=== PATIENT | female | born 1995 | race Caucasian/White ===

== ENCOUNTER 2017-06-07 14:48 | Emergency (ER) | payer OTHER ==
[~2017-06-07] VITALS: Ht 157.5 cm; Wt 82.5 kg
[2017-06-07 14:57] VITALS: TEMP 36.7; Ht 157.5 cm; Wt 82.5 kg
[2017-06-07] MEDS ORDERED: SODIUM CHLORIDE 0.9% 1000ML 1,000 ML IV STA (15:08)
[2017-06-07] MEDS ORDERED: KETOROLAC TROMETHAMINE 30 MG/ML VIAL IV STA (15:08)
[2017-06-07] MEDS ORDERED: VNTHFA/IN INH (15:12)
[2017-06-07 16:09] LABS: BASO % 0.5 %; BASO ABS # 0.04 K/uL (0-0.2); EOS ABS # 0.09 K/uL (0-0.5); HEMOGLOBIN 12.8 g/dL (12.0-16.0); IG# 0.02 K/uL (0.00-0.02); LYMPH ABS # 3.14 K/uL (1.2-3.4); MEAN CELL VOLUME 84.6 fL (80-100); MEAN CORPUSCULAR HEMOGLOBIN 28.5 pg (25-34); MEAN CORPUSCULAR HGB CONC 33.7 g/dl (32-36); MEAN PLATELET VOLUME 9.9 fL (7.4-10.4); MONO % 6.2 %; MONO ABS # 0.54 K/uL (0.11-0.59); NEUT % 56.1 %; NEUT ABS # 4.89 K/uL (1.4-6.5); PLATELET COUNT 253 K/uL (130-400); RED CELL DISTRIBUTION WIDTH CV 13.7 % (11.5-14.5); RED CELL DISTRIBUTION WIDTH SD 42.4 fL (36.4-46.3); WHITE BLOOD COUNT 8.72 K/uL (4.8-10.8)
--- NOTE | 2017-06-07 16:23 | DIAGNOSTIC IMAGING REPORT ---
CT HEAD WITHOUT CONTRAST (CT) CLINICAL HISTORY: Severe headache COMPARISON STUDY: No previous studies for comparison. TECHNIQUE: Axial CT of the brain is performed from the vertex to the skull base. IV contrast was not administered for this examination. A dose lowering technique was utilized adhering to the principles of ALARA. CT DOSE: 537.48 mGy.cm FINDINGS: No intra or extra-axial mass lesions are visualized. There is no CT evidence of acute cortical infarction. There is no evidence of midline shift. There is no acute hemorrhage. No calvarial fractures are visualized. There is no evidence of pathologic ventricular dilatation. There is no evidence of acute sinusitis IMPRESSION: Normal noncontrast head CT. Electronically signed by: Cameron Brvao M.D. 06/07/2017 4:22 PM Dictated Date/Time: 06/07/2017 4:21 PM
[2017-06-07 16:31] LABS: ALBUMIN 3.6 gm/dl (3.4-5.0); ALT/SGPT 19 U/L (12-78); AST/SGOT 9 U/L (15-37); BLOOD UREA NITROGEN 17 mg/dl (7-18); CALCIUM 9.1 mg/dl (8.5-10.1); CARBON DIOXIDE 27 mmol/L (21-32); CREATININE 0.99 mg/dl (0.60-1.20); GLUCOSE 88 mg/dl (70-99); LIPASE 174 U/L (73-393); POTASSIUM 3.9 mmol/L (3.5-5.1); SODIUM 137 mmol/L (136-145)
[2017-06-07 16:33] LABS: ALKALINE PHOSPHATASE 116 U/L (45-117); TOTAL PROTEIN 7.9 gm/dl (6.4-8.2)
--- NOTE | 2017-06-07 16:55 | DIAGNOSTIC IMAGING REPORT ---
ABDOMINAL ULTRASOUND, RIGHT UPPER QUADRANT HISTORY: Right upper quadrant abdominal pain.. COMPARISON: None. FINDINGS: Pancreas: The pancreatic tail is obscured by overlying bowel gas. The remaining portions of the pancreas are within normal limits. Liver: Unremarkable. Gallbladder: The gallbladder is contracted which limits evaluation. No definite gallbladder wall thickening. No gallstones. CBD: 5 mm. Right kidney: No hydronephrosis. IMPRESSION: No significant abnormality identified within the right upper quadrant. Gallbladder is contracted. Electronically signed by: Alfonso Lynch M.D. 06/07/2017 4:53 PM Dictated Date/Time: 06/07/2017 4:52 PM
[2017-06-07 17:10] VITALS: BP 103/68; PULSE 84; O2SAT 99
--- NOTE | 2017-06-07 19:40 | EMERGENCY ROOM VISIT NOTE ---
History Report prepared by David: Hannah Gibbons Under the Supervision of: Juan WallisO. First contact with patient: 14:59 Chief Complaint: ABDOMINAL PAIN Stated Complaint: BAD HEADACHE, STOMACH PAIN History of Present Illness The patient is a 22 year old female who presents to the Emergency Room with complaints of persistent right upper quadrant abdominal pain that began 2 days ago. She notes she has been nauseous and that her discomfort worsens with exertion. The patient states that she has been having a waxing and waning right sided headache that began 3 weeks ago. She notes her last normal menstrual period was 2 days ago and her last bowel movement was today. Pt denies change in vision, fevers, chest pain, shortness of breath, vomiting, diarrhea, pain with urination, and melena. Patient denies swelling of calves, recent trips, history of immobilization or recent surgery, prior history of DVT, hemoptysis, history of malignancy, history of smoking, or control/estrogen use. Patient denies a history of migraines or headaches, diabetes, hypertension, hyperlipidemia, CAD, history of sudden at a young age, and smoking. Source of History: patient Onset: 2 days ago Position: abdomen (RUQ) Quality: other (abdominal pain) Timing: other (persistent) Modifying Factors (Worsening): exertion Associated Symptoms: + headache, + nausea, No fevers, No chest pain, No SOB , No melena, No urinary symptoms Review of Systems See HPI for pertinent positives & negatives. A total of 10 systems reviewed and were otherwise negative. Past Medical & Surgical Medical Problems: (1) No Known Active Medical Problems Family History Patient reports no known family medical history. Social History Smoking Status: Never Smoker Smokeless Tobacco Use: No Alcohol Use: none Drug Use: none Marital Status: Housing Status: lives with family Occupation Status: unemployed Current/Historical Medications Scheduled PRN Albuterol Hfa (Ventolin Hfa), 2 PUFFS INH Q6H PRN for SOB/Wheezing Allergies Coded Allergies: No Known Allergies (Unverified , 06/07/17) Physical Exam Vital Signs Date Time Temp Pulse Resp B/P (MAP) Pulse Ox O2 Delivery O2 Flow Rate FiO2 06/07/17 17:10 84 16 103/68 99 Room Air 06/07/17 14:57 36.7 83 20 123/88 100 Room Air Physical Exam GENERAL: Sitting up in bed, alert, well appearing, well nourished, no distress, non-toxic EYE EXAM: normal conjunctiva. OROPHARYNX: no exudate, no erythema, lips, buccal mucosa, and tongue normal and mucous membranes are moist NECK: supple, no nuchal rigidity, no adenopathy, non-tender LUNGS: Clear to auscultation. Normal chest wall mechanics HEART: no murmurs, S1 normal and S2 normal ABDOMEN: Faint tenderness in RUQ. Abdomen soft, non-tender, normo-active bowel sounds, no masses, no rebound or guarding. BACK: Back is symmetrical on inspection and there is no deformity, no midline tenderness, no CVA tenderness. SKIN: no rashes and no bruising UPPER EXTREMITIES: upper extremities are grossly normal. LOWER EXTREMITIES: No pitting edema. NEURO EXAM: Normal sensorium, cranial nerves II-XII intact, normal speech, no weakness of arms, no weakness of legs. No drift. Finger to nose intact. Gross sensation intact. Medical Decision & Procedures ER Provider Diagnostic Interpretation: Radiology results as stated below per my review and the radiologist's interpretation: ABDOMINAL ULTRASOUND, RIGHT UPPER QUADRANT HISTORY: Right upper quadrant abdominal pain.. COMPARISON: None. FINDINGS: Pancreas: The pancreatic tail is obscured by overlying bowel gas. The remaining portions of the pancreas are within normal limits. Liver: Unremarkable. Gallbladder: The gallbladder is contracted which limits evaluation. No definite gallbladder wall thickening. No gallstones. CBD: 5 mm. Right kidney: No hydronephrosis. IMPRESSION: No significant abnormality identified within the right upper quadrant. Gallbladder is contracted. Electronically signed by: Alfonso Lynch M.D. 06/07/2017 4:53 PM Dictated Date/Time: 06/07/2017 4:[address] HEAD WITHOUT CONTRAST (CT) CLINICAL HISTORY: Severe headache COMPARISON STUDY: No previous studies for comparison. TECHNIQUE: Axial CT of the brain is performed from the vertex to the skull base. IV contrast was not administered for this examination. A dose lowering technique was utilized adhering to the principles of ALARA. CT DOSE: 537.48 mGy.cm FINDINGS: No intra or extra-axial mass lesions are visualized. There is no CT evidence of acute cortical infarction. There is no evidence of midline shift. There is no acute hemorrhage. No calvarial fractures are visualized. There is no evidence of pathologic ventricular dilatation. There is no evidence of acute sinusitis IMPRESSION: Normal noncontrast head CT. Electronically signed by: Cameron Bravo M.D. 06/07/2017 4:22 PM Dictated Date/Time: 06/07/2017 4:21 PM Laboratory Results 06/07/17 15:55 Red Blood Count 4.49, Mean Corpuscular Volume 84.6, Mean Corpuscular Hemoglobin 28.5, Mean Corpuscular Hemoglobin Concent 33.7, Mean Platelet Volume 9.9, Neutrophils (%) (Auto) 56.1, Lymphocytes (%) (Auto) 36.0, Monocytes (%) (Auto) 6.2, Eosinophils (%) (Auto) 1.0, Basophils (%) (Auto) 0.5, Neutrophils # (Auto) 4.89, Lymphocytes # (Auto) 3.14, Monocytes # (Auto) 0.54, Eosinophils # (Auto) 0.09, Basophils # (Auto) 0.04 06/07/17 15:55 Test 06/07/17 15:55 06/07/17 16:04 White Blood Count 8.72 K/uL (4.8-10.8) Red Blood Count 4.49 M/uL (4.2-5.4) Hemoglobin 12.8 g/dL (12.0-16.0) Hematocrit 38.0 % (37-47) Mean Corpuscular Volume 84.6 fL (80-100) Mean Corpuscular Hemoglobin 28.5 pg (25-34) Mean Corpuscular Hemoglobin Concent 33.7 g/dl (32-36) Platelet Count 253 K/uL (130-400) Mean Platelet Volume 9.9 fL (7.4-10.4) Neutrophils (%) (Auto) 56.1 % Lymphocytes (%) (Auto) 36.0 % Monocytes (%) (Auto) 6.2 % Eosinophils (%) (Auto) 1.0 % Basophils (%) (Auto) 0.5 % Neutrophils # (Auto) 4.89 K/uL (1.4-6.5) Lymphocytes # (Auto) 3.14 K/uL (1.2-3.4) Monocytes # (Auto) 0.54 K/uL (0.11-0.59) Eosinophils # (Auto) 0.09 K/uL (0-0.5) Basophils # (Auto) 0.04 K/uL (0-0.2) RDW Standard Deviation 42.4 fL (36.4-46.3) RDW Coefficient of Variation 13.7 % (11.5-14.5) Immature Granulocyte % (Auto) 0.2 % Immature Granulocyte # (Auto) 0.02 K/uL (0.00-0.02) Anion Gap 5.0 mmol/L (3-11) Est Creatinine Clear Calc Drug Dose 87.2 ml/min Estimated GFR () 92.4 Estimated GFR (Non- 79.8 BUN/Creatinine Ratio 17.0 (10-20) Calcium Level 9.1 mg/dl (8.5-10.1) Total Bilirubin 0.2 mg/dl (0.2-1) Direct Bilirubin < 0.1 mg/dl (0-0.2) Aspartate Amino Transf (AST/SGOT) 9 U/L (15-37) Alanine Aminotransferase (ALT/SGPT) 19 U/L (12-78) Alkaline Phosphatase 116 U/L (45-117) Total Protein 7.9 gm/dl (6.4-8.2) Albumin 3.6 gm/dl (3.4-5.0) Lipase 174 U/L (73-393) Urine Color YELLOW Urine Appearance CLEAR (CLEAR) Urine pH 5.5 (4.5-7.5) Urine Specific [place] 1.021 (1.000-1.030) Urine Protein NEG (NEG) Urine Glucose (UA) NEG (NEG) Urine Ketones NEG (NEG) Urine Occult Blood NEG (NEG) Urine Nitrite NEG (NEG) Urine Bilirubin NEG (NEG) Urine Urobilinogen NEG (NEG) Urine Leukocyte Esterase NEG (NEG) Urine WBC (Auto) 0 /hpf (0-5) Urine RBC (Auto) 0-4 /hpf (0-4) Urine Hyaline Casts (Auto) 0 /lpf (0-5) Urine Epithelial Cells (Auto) 10-20 /lpf (0-5) Urine Bacteria (Auto) NEG (NEG) Urine Test NEG (NEG) Laboratory results per my review. Medications Administered Medications (Trade) Dose Ordered Sig/Cecile Route Start Time Stop Time Status Last Admin Dose Admin Sodium Chloride 1,000 ml @ 999 mls/hr Q1H1M STAT IV 06/07/17 15:08 06/07/17 16:08 DC 06/07/17 16:03 999 MLS/HR Ketorolac Tromethamine (Toradol Inj) 30 mg NOW STAT IV 06/07/17 15:08 06/07/17 15:10 DC 06/07/17 16:03 30 MG ED Course ED COURSE: Vital signs were reviewed and showed normal vital signs. The patients medical record was reviewed The above diagnostic studies were performed and reviewed. ED treatments and interventions as stated above. 1503: The patient was evaluated in room C10. A complete history and physical examination was performed. 1508:Ordered Toradol Inj 30mg IV and Sodium Chloride 1000ml @ 999 mls/hr IV. 1658: Upon reevaluation, the patient is feeling better.I discussed my findings with the patient and she understands and agrees with the treatment plan. Medical Decision Differential diagnoses includes but is not limited to gastritis, peptic ulcer disease, GERD, gallbladder disease, pancreatitis, small bowel obstruction, acute coronary syndrome, pericarditis, ischemic bowel, irritable bowel disease, irritable bowel syndrome, appendicitis, diverticulitis, malignancy, hernia, urinary tract infection, torsion, /ectopic , perforation, trauma, infectious, headache, tension headache, cluster headache, migraine, subarachnoid hemorrhage, meningitis, mass, central venous thrombus, concussion, trauma and epidural/subdural hemorrhage. Patient is a 22-year-old female that presents to ER for right upper quadrant abdominal pain which has been present for the past 2 weeks. Twisting turning and bending makes it worse. No chest pain or shortness of breath. Patient has also had a headache for the past 3 weeks. No exacerbating or remitting factors. Patient's completely neurologically intact. No history or risk factors for any clotting disorders. CT head was performed and was unremarkable. Ultrasound right upper quadrant was negative. CBC all BMP, LFTs , bilirubin and UA was unremarkable. was negative. Lipase is normal. Patient family were updated bedside. She was given fluids and Toradol. She difficult better. She is discharged follow-up with PCP as an outpatient. No signs of meningitis or encephalitis on exam. Discussed with Pt concerning signs and symptoms to watch out for. Pt was instructed to follow up with their PCP and discussed with the patient their option to return to the ED at anytime for persistent or worsening symptoms. The appropriate anticipatory guidance and out-patient management, including indications for return to the emergency department, were explained at length to the patient and understood. Medication Reconcilliation Current Medication List: was personally reviewed by me Impression Primary Impression: Cephalgia Additional Impression: Abdominal pain Scribe Attestation The scribe's documentation has been prepared under my direction and personally reviewed by me in its entirety. I confirm that the note above accurately reflects all work, treatment, procedures, and medical decision making performed by me. Departure Information Dispostion Home / Self-Care Referrals Cassius Oneal (PCP) Forms HOME CARE DOCUMENTATION FORM, IMPORTANT VISIT INFORMATION Patient Instructions My [facility] Additional Instructions Please follow up with your primary care doctor with in the next 24 hours. Any worsening of your symptoms, please return to the ED immediately. This includes any fevers greater than 100.4, worsening pain, chest pain, shortness breath, persistent nausea, vomiting, unable to eat or drink, or any other concerning signs or symptoms from your standpoint. Please take Tylenol or Motrin as needed for headaches and abdominal pain. Problem Qualifiers Primary Impression: Cephalgia Headache type: unspecified Headache chronicity pattern: unspecified pattern Intractability: not intractable Qualified Codes: R51 - Headache Additional Impression: Abdominal pain Abdominal location: unspecified location Qualified Codes: R10.9 - Unspecified abdominal pain
== END 2017-06-07 17:27 | disposition home or self-care (01) ==
LOC: C.EDB 14:49 → C.EDC 17:27
DX: R51 Headache (principal); R10.11 Right upper quadrant pain

== ENCOUNTER 2017-07-27 23:55 | Emergency (ER) | payer OTHER ==
[~2017-07-27] VITALS: Ht 157.5 cm; Wt 83.1 kg
[~2017-07-27 23:55] MED LIST: VNTHFA/IN INH
[2017-07-27 23:59] VITALS: TEMP 36.8; Ht 157.5 cm; Wt 83.1 kg
[2017-07-28] MEDS ORDERED: KETOROLAC TROMETHAMINE 30 MG/ML VIAL IV STA (00:11)
[2017-07-28 00:30] LABS: BASO % 0.2 %; BASO ABS # 0.02 K/uL (0-0.2); EOS % 1.2 %; EOS ABS # 0.12 K/uL (0-0.5); HEMATOCRIT 38.8 % (37-47); HEMOGLOBIN 12.7 g/dL (12.0-16.0); IG# 0.02 K/uL (0.00-0.02); LYMPH % 40.9 %; LYMPH ABS # 4.11 K/uL (1.2-3.4); MEAN CELL VOLUME 84.5 fL (80-100); MEAN CORPUSCULAR HEMOGLOBIN 27.7 pg (25-34); MEAN CORPUSCULAR HGB CONC 32.7 g/dl (32-36); MONO % 6.5 %; MONO ABS # 0.65 K/uL (0.11-0.59); NEUT ABS # 5.14 K/uL (1.4-6.5); PLATELET COUNT 295 K/uL (130-400); RED CELL DISTRIBUTION WIDTH CV 13.9 % (11.5-14.5); RED CELL DISTRIBUTION WIDTH SD 42.3 fL (36.4-46.3); WHITE BLOOD COUNT 10.06 K/uL (4.8-10.8)
[2017-07-28 00:52] LABS: ALBUMIN 3.7 gm/dl (3.4-5.0); ALT/SGPT 21 U/L (12-78); AST/SGOT 13 U/L (15-37); BLOOD UREA NITROGEN 15 mg/dl (7-18); CALCIUM 9.4 mg/dl (8.5-10.1); CARBON DIOXIDE 29 mmol/L (21-32); CREATININE 1.05 mg/dl (0.60-1.20); GLUCOSE 86 mg/dl (70-99); LIPASE 173 U/L (73-393); POTASSIUM 3.9 mmol/L (3.5-5.1); SODIUM 139 mmol/L (136-145)
[2017-07-28] MEDS ORDERED: EPP3/2 IM (00:52)
[2017-07-28 00:57] LABS: ALKALINE PHOSPHATASE 110 U/L (45-117); TOTAL PROTEIN 8.1 gm/dl (6.4-8.2)
[2017-07-28 02:00] VITALS: BP 100/63; PULSE 88; O2SAT 100
--- NOTE | 2017-07-28 02:17 | EMERGENCY ROOM VISIT NOTE ---
History First contact with patient: 00:03 Chief Complaint: SHORTNESS OF BREATH Stated Complaint: SOB,PAIN IN CHEST WITH DEEP BREATH,[facility] Nursing Triage Summary: c/o SOB for a few days with chest pain with deep breathing. History of Present Illness The patient is a 22 year old female who presents to the Emergency Room with complaints of midsternal chest pain and shortness of breath for the past few days described as discomfort, 5 out of 10 that is worse with breathing and movement and better with rest. It does not radiate. Patient has been under more stress lately. She tried her inhaler with no improvement of symptoms. She does have asthma. Patient denies fever, chills, cough, congestion, abdominal pain, nausea, vomiting, diarrhea, back pain, leg pain or swelling. No recent travel. No tobacco use. No control. No recent surgery. No family history of heart disease or blood clots. No personal history of blood clots or heart disease. Patient states she has been under more stress lately. Review of Systems An 10 system review of systems was completed with positives and pertinent negatives listed in the HPI. Past Medical/Surgical History Medical Problems: (1) No Known Active Medical Problems Family History Patient reports no known family medical history. Social History Smoking Status: Never Smoker Smokeless Tobacco Use: No Alcohol Use: none Drug Use: none Marital Status: Housing Status: lives with family Current/Historical Medications Scheduled PRN Albuterol Hfa (Ventolin Hfa), 2 PUFFS INH Q6H PRN for SOB/Wheezing Epinephrine (Epipen), 0.3 MG IM UD PRN for Allergic Reaction Physical Exam Vital Signs Date Time Temp Pulse Resp B/P (MAP) Pulse Ox O2 Delivery O2 Flow Rate FiO2 07/28/17 02:00 88 16 100/63 100 Room Air 07/28/17 01:00 84 20 119/73 98 Room Air 07/28/17 00:36 Room Air 07/28/17 00:36 84 07/28/17 00:18 Room Air 07/27/17 23:59 36.8 79 18 138/88 100 Room Air Physical Exam VITALS: Vitals are noted on the nurse's note and reviewed by myself. Vital signs stable. GENERAL: Pleasant female, in no acute distress, nondiaphoretic, well-developed well-nourished. SKIN: The skin was without rashes, erythema, edema, or bruising. There is no tenting of the skin. Capillary reflex less than 2 seconds. HEAD: Normocephalic atraumatic. EARS: External auditory canals clear, tympanic membranes pearly francisco without erythema or effusion bilaterally. EYES: Pupils equal round and reactive to light and accommodation. Conjunctivae without injection, sclerae without icterus. Extraocular movements intact. NOSE: Patent, turbinates without inflammation or discharge. MOUTH: Mucous membranes moist. Pharynx without erythema or exudate. Uvula midline. Airway patent. Tongue does not deviate. NECK: Supple without nuchal rigidity. No lymphadenopathy. No thyromegaly. Cervical spine is nontender. No JVD. HEART: Regular rate and rhythm without murmurs gallops or rubs. Chest nontender to palpation. LUNGS: Clear to auscultation bilaterally without wheezes, rales or rhonchi. No retractions or accessory muscle use. ABDOMEN: Positive bowel sounds x 4. Normal tympanic percussion. Soft, nontender, without masses or organomegaly. Griffith sign negative. No guarding or rebound tenderness. No CVA tenderness MUSCULOSKELETAL: No muscle atrophy, erythema, or edema noted. NEURO: Patient was alert and oriented to person place and time. Normal sensation to light and sharp touch. No focal neurological deficits. Medical Decision & Procedures Laboratory Results 07/28/17 00:20 Red Blood Count 4.59, Mean Corpuscular Volume 84.5, Mean Corpuscular Hemoglobin 27.7, Mean Corpuscular Hemoglobin Concent 32.7, Mean Platelet Volume 10.0, Neutrophils (%) (Auto) 51.0, Lymphocytes (%) (Auto) 40.9, Monocytes (%) (Auto) 6.5, Eosinophils (%) (Auto) 1.2, Basophils (%) (Auto) 0.2, Neutrophils # (Auto) 5.14, Lymphocytes # (Auto) 4.11, Monocytes # (Auto) 0.65, Eosinophils # (Auto) 0.12, Basophils # (Auto) 0.02 07/28/17 00:20 Test 07/28/17 00:20 07/28/17 00:29 White Blood Count 10.06 K/uL (4.8-10.8) Red Blood Count 4.59 M/uL (4.2-5.4) Hemoglobin 12.7 g/dL (12.0-16.0) Hematocrit 38.8 % (37-47) Mean Corpuscular Volume 84.5 fL (80-100) Mean Corpuscular Hemoglobin 27.7 pg (25-34) Mean Corpuscular Hemoglobin Concent 32.7 g/dl (32-36) Platelet Count 295 K/uL (130-400) Mean Platelet Volume 10.0 fL (7.4-10.4) Neutrophils (%) (Auto) 51.0 % Lymphocytes (%) (Auto) 40.9 % Monocytes (%) (Auto) 6.5 % Eosinophils (%) (Auto) 1.2 % Basophils (%) (Auto) 0.2 % Neutrophils # (Auto) 5.14 K/uL (1.4-6.5) Lymphocytes # (Auto) 4.11 K/uL (1.2-3.4) Monocytes # (Auto) 0.65 K/uL (0.11-0.59) Eosinophils # (Auto) 0.12 K/uL (0-0.5) Basophils # (Auto) 0.02 K/uL (0-0.2) RDW Standard Deviation 42.3 fL (36.4-46.3) RDW Coefficient of Variation 13.9 % (11.5-14.5) Immature Granulocyte % (Auto) 0.2 % Immature Granulocyte # (Auto) 0.02 K/uL (0.00-0.02) Anion Gap 4.0 mmol/L (3-11) Est Creatinine Clear Calc Drug Dose 82.6 ml/min Estimated GFR () 86.1 Estimated GFR (Non- 74.3 BUN/Creatinine Ratio 14.0 (10-20) Calcium Level 9.4 mg/dl (8.5-10.1) Total Bilirubin 0.4 mg/dl (0.2-1) Direct Bilirubin < 0.1 mg/dl (0-0.2) Aspartate Amino Transf (AST/SGOT) 13 U/L (15-37) Alanine Aminotransferase (ALT/SGPT) 21 U/L (12-78) Alkaline Phosphatase 110 U/L (45-117) Troponin I < 0.015 ng/ml (0-0.045) Total Protein 8.1 gm/dl (6.4-8.2) Albumin 3.7 gm/dl (3.4-5.0) Lipase 173 U/L (73-393) Human Chorionic Gonadotropin, Qual NEG (NEG) Bedside D-Dimer 189 ng/mlFEU (0-450) Bedside Troponin I < 0.030 ng/ml (0-0.045) Medications Administered Medications (Trade) Dose Ordered Sig/Cecile Route Start Time Stop Time Status Last Admin Dose Admin Ketorolac Tromethamine (Toradol Inj) 15 mg NOW STAT IV 07/28/17 00:11 07/28/17 00:12 DC 07/28/17 00:24 15 MG ED Course Prior records/ancillary studies reviewed. Triage Nursing notes reviewed. The patient's history was concerning for chest pain. Differential diagnosis: Etiologies such as cardiac ischemia, aortic dissection, pulmonary embolism, pneumonia, pneumothorax, musculoskeletal, infections, pericarditis, myocarditis , esophageal rupture, gastrointestinal, as well as others were entertained. Physical examination: As above. ER treatment provided: Toradol On reassessment the patient felt better. Diagnostic interpretation by me: The electrocardiogram was normal sinus, normal intervals, no acute ST-T wave changes. No old EKG. Impression normal sinus rhythm interpreted by myself The labs revealed negative troponin. Negative d-dimer. Imaging studies: Chest x-ray with no acute consolidation, pneumothorax or free of my interpretation Heart score is 0 Exam and history seem consistent chest pain unlikely to be cardiac in etiology. Patient refused to wait for a repeat troponin at the 2 hour jenelle. Patient does have a heart score that is 0. Her symptoms were improved after the Toradol. I felt it is reasonable for her to be discharged home with close follow-up with the family care doctor. This appears to be less likely to be cardiac in etiology. I do not believe she has a PE. D-dimer is negative. Well score is low. No acute findings in the above workup. She is well- appearing. She is tolerating fluids. She felt better after being medicated as above. She has been on it more stress lately. She is advised to rest, stay well-hydrated and to follow-up family care in a few days here in the ER sooner for chest pain, debility breathing, worsening signs or symptoms or as needed. By the evaluation outlined above emergent etiologies such as cardiac ischemia, aortic dissection, pulmonary embolism, pneumonia, pneumothorax, infections, pericarditis, myocarditis, gastrointestinal, as well as others were deemed relatively unlikely. The pt informed about the findings as listed above. All questions were answered and pleased with the treatment. Return instructions were outlined and the patient was discharged in stable condition. Referral: The patient was referred back to primary care physician for follow-up in 2 to 3 days for a recheck of the current condition. Case reviewed with my attending The chart was completed utilizing [employer] Speech voice recognition software. Grammatical errors, random word insertions, pronoun errors, and incomplete sentences are an occassional consequence of this system due to software limitations, ambient noise, and hardware issues. Any formal questions or concerns about the content, text, or information contained within the body of this dictation should be directly addressed to the physician care management assistant for clarification. Medical Decision As above Medication Reconcilliation Current Medication List: was personally reviewed by me Blood Pressure Screening Patient's blood pressure: Normal blood pressure Impression Primary Impression: Non-cardiac chest pain Departure Information Dispostion Home / Self-Care Condition GOOD Referrals Cassius Oneal (PCP) Patient Instructions My [facility] Additional Instructions Ibuprofen(Motrin, Advil) may be used for fever or pain. Use 600mg every six hours as needed. Take with food. Avoid using more than 2400mg in a 24 hour period. Do not use 2400mg per day for more than three consecutive days without physician direction. Prolonged inappropriate use can lead to stomach upset or ulcers. (AND/OR) Acetaminophen(Tylenol) may be used for fever or pain. Use 1000mg every six hours as needed. Avoid using more than 3000mg in a 24 hour period. Rest and drink plenty of fluids as tolerated. Continue current medications. Avoid strenuous activities and anything that worsens your pain. Resume normal activities once your symptoms resolve. Return to the ER immediately for worsening or persistent chest pain, abdominal pain, vomiting, fevers, chest pains, difficulty breathing, worsening of your condition, or as needed. Follow up with your primary physician in 2-3 days for a recheck of your current condition.
--- NOTE | 2017-07-28 06:35 | DIAGNOSTIC IMAGING REPORT ---
CHEST ONE VIEW PORTABLE HISTORY: 22 years-old Female CHEST PAIN acute atypical chest pain with shortness of breath COMPARISON: None available TECHNIQUE: Portable AP view of the chest FINDINGS: Cardiomediastinal and hilar silhouettes are within normal limits. There is no pneumothorax, pleural effusion, focal airspace consolidation or overt pulmonary edema. The bones of the chest appear grossly intact. Upper abdomen appears unremarkable. IMPRESSION: No acute process. The above report was generated using voice recognition software. It may contain grammatical, syntax or spelling errors. Electronically signed by: Dennis Stone M.D. 07/28/2017 6:34 AM Dictated Date/Time: 07/28/2017 6:33 AM
== END 2017-07-28 02:24 | disposition home or self-care (01) ==
LOC: C.EDB 23:56 → C.EDA 07-28 02:24
DX: R07.89 Other chest pain (principal); R06.02 Shortness of breath; J45.909 Unspecified asthma, uncomplicated

== ENCOUNTER 2023-08-12 17:56 | Inpatient (IN) ==
--- NOTE | 2023-08-12 18:08 | Emergency Department Note ---
Impression & Plan Cholelithiasis, Transaminitis, Common bile duct dilation, Abdominal pain, Elevated lipase ED Provider Note NAME: JAYJAY ESCOBAR AGE: 28 SEX: F : 1995 ARRIVES VIA: Ambulance INFORMANT: Patient, ED PROVIDER(S): Simeon Escobar MD CHIEF COMPLAINT: Abdominal pain MEDICAL DECISION MAKING: Patient presents due to concern for abdominal pain. IV was established and blood was obtained along with LFTs lipase and right upper quadrant ultrasound. Patient was ordered IV fluids IV Zofran IV Toradol. Patient had persistent pain and was ordered IV fentanyl 100 mcg. Zosyn ordered. The patient did have improvement in her symptoms. Patient has a normal white count H&H and platelet count. Kidney function is unremarkable. Mild improvement in AST and ALT slightly worsening bilirubin at 2.4 today. The patient does have a lipase of 6200. Patient's urinalysis does not show evidence of obvious infection. Bilirubin noted but the patient does have elevated bilirubin and low blood. Urine ketones noted and patient did receive IV fluids. The patient's gallbladder ultrasound shows cholelithiasis with thickening of the gallbladder wall CBD 1 cm. Patient was ordered an MRCP after discussing the case with on-call GI Dr. Chandra. He stated that Dr. Mendoza may be in hospital tomorrow could potentially perform an ERCP if needed although this would be discussed in the morning after MRCP and evaluation by GI. He also stated that he did not think patient necessarily required a CT abdomen pelvis in light of the patient's lipase and that an MRCP would be appropriate at this time. This was ordered. I did speak with the on-call hospitalist Dr. Lopez and the patient was admitted to the medicine service. Discussion w/ other healthcare providers: Dr. Chandra gastroenterology Dr. Lopez inpatient medicine service Prior /Outside records reviewed: None Differential diagnosis: Appendicitis, ovarian cyst, ovarian torsion, ectopic , TOA, PID, diverticulitis, UTI, obstruction, inflammatory bowel disease, renal colic, PUD, pancreatitis, biliary pathology, hernia, volvulus, constipation, as well as other pathologies were considered. Diagnostics, as interpreted by me: ECG: None Cardiac monitoring: An order was placed for continuous cardiac monitoring. The monitor shows a rate of 85 with sinus rhythm. Patient was placed on pulse oximetry Medical decision rules: None Imaging studies: I informally interpreted the patient's right upper quadrant ultrasound does show gallstones with formal report to follow. HPI: Patient presents due to concern for abdominal pain that began around noon today. The patient states that she had worsening pain after eating Jell-O. Patient was seen last evening in the emergency department due to concern for transaminitis and associated gallstones and biliary colic. Patient had been recommended to stay but left and was going to try and obtain an outpatient appointment. The patient's pain was too severe today to continue staying at home. Patient denies any chest pains or shortness of breath but does feel as though the pain is restricting her ability to take a big deep breath. The patient has had nausea but no vomiting. Patient's pain is located the right upper quadrant sharp and does radiate to the right shoulder. PAST MEDICAL HISTORY: See Below PAST SURGICAL HISTORY: See Below SOCIAL HISTORY: See Below HOME MEDICATIONS: See Below ALLERGIES: See Below VITALS: See Below PHYSICAL EXAMINATION: GENERAL: NAD, non-toxic. EYE EXAM: Normal conjunctiva. PERRL, no anisocoria and EOM's grossly intact w/o pain. OROPHARYNX: Moist mucus membranes, grossly normal dentition. NECK: Trachea midline, no stridor. Supple, no nuchal rigidity, no adenopathy, non-tender. No signs of meningismus. FROM of the neck with good chin to chest and neck extension. LUNGS: Clear to auscultation. Normal chest wall mechanics. HEART: NSR, no MRG. ABDOMEN: Abdomen soft, epigastric and right upper quadrant pain, no masses, no rebound or guarding. BACK: No CVA TTP. SKIN: No rashes and no bruising. UPPER EXTREMITIES: Upper extremities are grossly normal. LOWER EXTREMITIES: Grossly normal, no edema. NEURO EXAM: A&O x3, cranial nerves II-XII grossly intact, normal speech, moves all 4 extremities. Past Med/Surg History Medical History Sinus congestion Surgical History History of Family History Other Asthma Social History Smoking Status: Never smoker Tobacco Type: Cigarettes Hx Alcohol Use: Yes Hx Substance Use: No Preferred Language: Kyrgyz Feels Safe at Home: Yes Allergies Allergies Allergy/AdvReac Type Severity Reaction Status Date / Time No Known Allergies Allergy Verified 08/12/23 20:15 Home Meds Home Medications Medication Instructions Recorded Confirmed citalopram 10 mg tablet 10 mg PO DAILY 08/11/23 08/12/23 famotidine 20 mg tablet 20 mg PO BID 08/11/23 08/12/23 omeprazole 20 mg capsule,delayed 20 mg PO DAILY 08/11/23 08/12/23 release ondansetron HCl 4 mg tablet 4 mg PO BID PRN NAUSEA/VOMITING 08/11/23 08/12/23 Previous Rx's Medication Instructions Recorded ciprofloxacin HCl 500 mg tablet 500 mg PO Q12H 10 days #20 tabs 08/12/23 metronidazole 500 mg tablet 500 mg PO Q8H 10 days #30 tabs 08/12/23 Results & Data (ED) Vital Signs Vital Signs - 24 hr 08/12/23 17:56 08/12/23 18:06 08/12/23 19:22 Temperature 36.6 C Temperature Source Oral Pulse Rate 59 L Pulse Rate [Finger] 53 L Respiratory Rate 24 16 Respiratory Effort / Characteristics Non-Labored Spontaneous Non-Labored Spontaneous Respiratory Depth Normal Normal Respiratory Pattern Regular Regular Blood Pressure 130/82 Blood Pressure [Right Arm] 121/74 Blood Pressure Mean 98 Blood Pressure Mean [Right Arm] 89 Blood Pressure Position [Right Arm] Semi-fowlers Pulse Oximetry 96 98 Oxygen Delivery Method Room Air Room Air Room Air Sepsis Recent Fever Within 48 Hours No Sepsis New/Unexplained Change in Mental Status No Sepsis Action Taken by Nursing No Action Required 08/12/23 20:14 08/12/23 20:46 Temperature 36.5 C Temperature Source Oral Pulse Rate Pulse Rate [Finger] 55 L 56 L Respiratory Rate 18 18 Respiratory Effort / Characteristics Non-Labored Spontaneous Respiratory Depth Normal Respiratory Pattern Regular Blood Pressure Blood Pressure [Right Arm] 113/68 Blood Pressure Mean Blood Pressure Mean [Right Arm] 83 Blood Pressure Position [Right Arm] Pulse Oximetry 100 100 Oxygen Delivery Method Room Air Sepsis Recent Fever Within 48 Hours Sepsis New/Unexplained Change in Mental Status Sepsis Action Taken by Prison Medications Current Medication List: was personally reviewed by me Laboratory Data Attestation: I reviewed the patient's lab results. 08/12/23 18:00 08/12/23 18:00 Lab Results 08/12/23 08/12/23 Range/Units 18:00 18:41 WBC 5.94 (4.8-10.8) K/ul RBC 4.40 (4.20-5.40) M/uL Hgb 12.3 (12.0-16.0) g/dl Hct 38.1 (37.0-47.0) % MCV 86.6 (80.0-100.0) fL MCH 28.0 (25.0-34.0) pg MCHC 32.3 (32.0-36.0) g/dL RDW Std Deviation 42.0 (36.4-46.3) fL RDW Coeff of Adrien 13.3 (11.5-14.5) % Plt Count 242 (130-400) K/uL MPV 10.5 (9.4-12.4) fL Immature Gran % (Auto) 0.2 % Neut % (Auto) 68.8 % Lymph % (Auto) 24.2 % [place] % (Auto) 6.4 % Eos % (Auto) 0.2 % Baso % (Auto) 0.2 % Neut # (Auto) 4.09 (1.40-6.50) K/uL Lymph # (Auto) 1.44 (1.20-3.40) K/uL [place] # (Auto) 0.38 (0.11-0.59) K/uL Eos # (Auto) 0.01 (0.00-0.50) K/uL Baso # (Auto) 0.01 (0.00-0.20) K/uL Immature Gran # (Auto) 0.01 (0.01-0.20) K/uL PT 10.4 (9.0-12.0) Seconds INR 0.9 (0.9-1.1) Sodium 140 (136-145) mmol/L Potassium 3.6 (3.5-5.1) mmol/L Chloride 106 (98-107) mmol/L Carbon Dioxide 28 (21-32) mmol/L Anion Gap 6 (3-11) BUN 10 (6-23) mg/dl Creatinine 0.97 (0.6-1.2) mg/dl Est Cr Clr Drug Dosing 87.9 ml/min Est GFR ( Amer) 90.8 ml/min Est GFR (Non-Af Amer) 78.4 ml/min BUN/Creatinine Ratio 10.3 (10-20) Glucose 95 (70-99(Fasting)) mg/dl Calcium 9.1 (8.6-10.3) mg/dl Total Bilirubin 2.4 H (0.2-1.0) mg/dl AST 146 H (13-39) U/L ALT 319 H (7-52) U/L Alkaline Phosphatase 212 H (34-104) U/L Total Protein 7.5 (6.0-8.3) gm/dl Albumin 4.2 (3.4-5.0) gm/dl Globulin 3.3 (2.5-4.0) gm/dl Albumin/Globulin Ratio 1.3 (0.9-2) Lipase 6252 H (11-82) U/L Urine Color Dark Yellow Urine Appearance Clear (Clear) Urine pH 5.5 (4.5-7.5) Ur Specific [place] 1.014 (1.000-1.030) Urine Protein Negative (Negative) Urine Glucose (UA) Negative (Negative) Urine Ketones Trace H (Negative) Urine Blood Negative (Negative) Urine Nitrite Negative (Negative) Urine Bilirubin 2+ H (Negative) Urine Urobilinogen Negative (Negative) Ur Leukocyte Esterase Negative (Negative) Urine Test Negative (Negative) Administered Medications Discontinued Medications Fentanyl Citrate (Fentanyl Citrate Pf 100 Mcg/2 Ml Vial) 100 mcg IV NOW STA Stop: 08/12/23 18:38 Last Admin: 08/12/23 18:43 Dose: 100 mcg Documented By: JAMES Hydromorphone HCl (Hydromorphone Inj 0.5 Mg/0.5 Ml Syr) 0.5 mg IV NOW STA Stop: 08/12/23 22:03 Last Admin: 08/12/23 22:34 Dose: 0.5 mg Documented By: FRANSISCO Sodium Chloride (Nss) 1,000 mls @ 999 mls/hr IV .Q1H1M STA Stop: 08/12/23 19:06 Last Infusion: 08/12/23 19:26 Dose: Infused Documented By: Admin: 08/12/23 18:25 Dose: 999 mls/hr Documented By: ACC Piperacillin Sod/Tazobactam Sod (Zosyn) 4.5 gm in 100 mls @ 200 mls/hr IV NOW ONE Stop: 08/12/23 19:53 Last Infusion: 08/12/23 20:41 Dose: Infused Documented By: Admin: 08/12/23 20:11 Dose: 200 mls/hr Documented By: FRANSISCO Prochlorperazine 5 mg/ Syringe 5 mls @ 5 mls/min IV ONE ONE Stop: 08/12/23 22:07 Last Admin: 08/12/23 22:34 Dose: 5 mls/min Documented By: RFANSISCO Ketorolac Tromethamine (Ketorolac Tromethamine 15 Mg/Ml Vial) 10 mg IV NOW STA Stop: 08/12/23 18:07 Last Admin: 08/12/23 18:24 Dose: 10 mg Documented By: ACC Ondansetron HCl (Ondansetron Inj 2 Mg/Ml 2 Ml Vial) 4 mg IV NOW STA Stop: 08/12/23 18:07 Last Admin: 08/12/23 18:23 Dose: 4 mg Documented By: ACC Imaging Data Radiologist's Impression: Gallbladder Ultrasound 08/12/23 18:06 Exam(s): US GALLBLADDER EXAM: US Abdomen Limited, Gallbladder CLINICAL HISTORY: Right upper quadrant pain. TECHNIQUE: Real-time ultrasound of the right upper quadrant with image documentation. COMPARISON: Gallbladder ultrasound 06/07/2017 FINDINGS: Liver: The liver measures 18.3 cm. There is increased echogenicity of the liver. No mass. Gallbladder: Cholelithiasis. Thickening of the gallbladder wall could relate to chronic liver disease or acute cystitis. Common bile duct: Dilated common bile duct measuring 1 cm. No stones. Pancreas: The pancreatic head and body are within normal limits. The tail is not visualized due to overlying bowel gas. Right kidney: The right kidney is unremarkable measuring 9.7 cm. IMPRESSION: 1. Cholelithiasis. Thickening of the gallbladder wall could relate to chronic liver disease or acute cystitis. 2. Dilated common bile duct measuring 1 cm. Consider further evaluation with MRCP. 3. Hepatomegaly with fatty infiltration of the liver. Electronically signed by: Gisel Xiong MD 08/12/23 19:54 PM Discharge Plan Visit Data Chief Complaint: Abdominal Pain Stated Complaint: ABDOMINAL PAIN ED Provider: Simeon Escobar Discharge Problem: Cholelithiasis, Transaminitis, Common bile duct dilation, Abdominal pain, Elevated lipase Patient Disposition: Admitted As Inpatient Discharge Instructions Interventions: ED Discharge Assessment Last Done: 08/12/23 23:34 Discharge Problem: Cholelithiasis Qualifiers: Cholelithiasis location: gallbladder Abdominal pain Qualifiers: Abdominal location: right upper quadrant Qualified Code(s): R10.11 - Right upper quadrant pain
[2023-08-12] MEDS: ONDANSETRON INJ 2 MG/ML 2 ML VIAL IV STA (18:23)
[2023-08-12] MEDS: KETOROLAC TROMETHAMINE 15 MG/ML VIAL IV STA (18:24)
[2023-08-12] MEDS: SODIUM CHLORIDE 0.9% 1,000 ML IV STA (18:25)
[2023-08-12 18:27] LABS: Basophils # (auto) 0.01 K/uL (0.00-0.20); Basophils % (auto) 0.2 %; Eosinophils # (auto) 0.01 K/uL (0.00-0.50); Eosinophils % (auto) 0.2 %; Hematocrit (blood only) 38.1 % (37.0-47.0); Hemoglobin 12.3 g/dl (12.0-16.0); Immature Granulocytes # (auto) 0.01 K/uL (0.01-0.20); Immature Granulocytes % (auto) 0.2 %; Lymphocytes # (auto) 1.44 K/uL (1.20-3.40); Lymphocytes % (auto) 24.2 %; Mean Corpuscular Hgb Conc 32.3 g/dL (32.0-36.0); Mean Corpuscular Volume 86.6 fL (80.0-100.0); Mean Platelet Volume 10.5 fL (9.4-12.4); Monocytes # (auto) 0.38 K/uL (0.11-0.59); Monocytes % (auto) 6.4 %; Neutrophils # (auto) 4.09 K/uL (1.40-6.50); Neutrophils % (auto) 68.8 %; Platelet Count 242 K/uL (130-400); RDW Coefficient of Variation 13.3 % (11.5-14.5); White Blood Count 5.94 K/ul (4.8-10.8)
[2023-08-12 18:35] LABS: BUN Creatinine Ratio 10.3 (10-20); Calcium 9.1 mg/dl (8.6-10.3); Creatinine Clr Calc Pharmacy 87.9 ml/min; Est GFR (African American) 90.8 ml/min; Est GFR (Non-African American) 78.4 ml/min; Potassium 3.6 mmol/L (3.5-5.1)
[2023-08-12] MEDS: fentaNYL citrate PF 100 MCG/2 ML VIAL IV STA (18:43)
[2023-08-12 18:46] LABS: INR 0.9 (0.9-1.1); Prothrombin Time 10.4 Seconds (9.0-12.0)
[2023-08-12 18:53] LABS: Albumin Globulin Ratio 1.3 (0.9-2); Albumin Level 4.2 gm/dl (3.4-5.0); Bilirubin,Total 2.4 mg/dl (0.2-1.0); Globulin 3.3 gm/dl (2.5-4.0); Total Protein 7.5 gm/dl (6.0-8.3)
[2023-08-12 18:59] LABS: Appearance Urine Clear (Clear); Blood Urine Negative (Negative); Color Urine Dark Yellow; Glucose Urine UA Negative (Negative); Ketones Urine Trace (Negative); Leukocyte Esterase Urine Negative (Negative); Nitrite Urine Negative (Negative); Protein Urine Negative (Negative); Specific Gravity Urine 1.014 (1.000-1.030); Urobilinogen Urine Negative (Negative); pH Urine 5.5 (4.5-7.5)
[2023-08-12 19:02] LABS: Pregnancy Test, Urine Negative (Negative)
[2023-08-12 19:03] LABS: Bilirubin Urine 2+ (Negative)
--- NOTE | 2023-08-12 19:55 | Ultrasound Report ---
Exam(s): US GALLBLADDER EXAM: US Abdomen Limited, Gallbladder CLINICAL HISTORY: Right upper quadrant pain. TECHNIQUE: Real-time ultrasound of the right upper quadrant with image documentation. COMPARISON: Gallbladder ultrasound 06/07/2017 FINDINGS: Liver: The liver measures 18.3 cm. There is increased echogenicity of the liver. No mass. Gallbladder: Cholelithiasis. Thickening of the gallbladder wall could relate to chronic liver disease or acute cystitis. Common bile duct: Dilated common bile duct measuring 1 cm. No stones. Pancreas: The pancreatic head and body are within normal limits. The tail is not visualized due to overlying bowel gas. Right kidney: The right kidney is unremarkable measuring 9.7 cm. IMPRESSION: 1. Cholelithiasis. Thickening of the gallbladder wall could relate to chronic liver disease or acute cystitis. 2. Dilated common bile duct measuring 1 cm. Consider further evaluation with MRCP. 3. Hepatomegaly with fatty infiltration of the liver. Electronically signed by: Gisel Xiong MD 08/12/23 19:54 PM
[2023-08-12] MEDS: PIPERACILLIN/TAZOBACTAM 4.5 GM/100 ML BAG IV ONE (20:11)
--- NOTE | 2023-08-12 21:27 | History & Physical Report ---
Date of Service August 12, 2023 Assessment & Plan (1) Acute cholecystitis: (2) Acute gallstone pancreatitis: (3) Common bile duct dilation: Plan Acute cholecystitis/acute gallstone pancreatitis- MRCP this evening is now showing progression of the above 2 diagnoses, which are new compared to MRCP 24 hours ago Lipase last evening was 17, now has increased to 6252 NPO Status post 1 L normal saline bolus in the ED NSS + KCl 20 mEq at 100 mL/h Zofran 4 mg IV every 6 hours as needed Zosyn 4.5 g IV every 8 hours Pantoprazole 40 mg IV daily She reports that the morphine that she got last evening made her feel nauseous Dilaudid 0.25 mg IV every 3 hours as needed for moderate pain Dilaudid 0.5 mg IV every 3 hours as needed for severe pain Gastroenterology Dr. Chandra reports that Dr. Mendoza will be in the hospital tomorrow, and will do an ERCP if needed Follow serial CBC with differential and chemistry profile Consult general surgery after GI workup History of Present Illness Chief Complaint: The patient presents to the emergency department with a recurrence of intractable abdominal pain and nausea Primary Care Provider: Cassius Oneal MD The patient is a 28-year-old female with a past medical history including emergency department visit about 24 hours ago, for transaminitis, cholelithiasis, common bile duct dilatation and abdominal pain. Her symptoms had improved after receiving pain medications and was discharged on Cipro and Flagyl, with plans to follow-up with surgery in the outpatient setting at [facility]. Due to more acute worsening of symptoms later on in the day today, she presents to the ED at [facility] for reassessment. Allergies Allergy/AdvReac Type Severity Reaction Status Date / Time No Known Allergies Allergy Verified 08/12/23 20:15 Home Medications Medication Instructions Recorded Confirmed Type citalopram 10 mg tablet 10 mg PO DAILY 08/11/23 08/12/23 History famotidine 20 mg tablet 20 mg PO BID 08/11/23 08/12/23 History omeprazole 20 mg capsule,delayed 20 mg PO DAILY 08/11/23 08/12/23 History release ondansetron HCl 4 mg tablet 4 mg PO BID PRN NAUSEA/VOMITING 08/11/23 08/12/23 History ciprofloxacin HCl 500 mg tablet 500 mg PO Q12H 10 days #20 tabs 08/12/23 08/12/23 Rx metronidazole 500 mg tablet 500 mg PO Q8H 10 days #30 tabs 08/12/23 08/12/23 Rx Past Med/Surg History Medical History Sinus congestion Surgical History History of Family History Other Asthma Social History Smoking Status: Never smoker Tobacco Type: Cigarettes Hx Alcohol Use: Yes Hx Substance Use: No Preferred Language: Swedish Communication Ability: Effective [employer] Service Team Member Required: No Beliefs That Will Affect Care: None Current Living Situation: Spouse and Family Other Information That Helps Us Care for You: No Feels Safe at Home: Yes Safety Concerns: Feels Safe At This Time Assistive Devices: None Review of Systems Review of Systems: The patient denies chest pain, palpitations, shortness of breath, dyspnea on exertion, cough, lower extremity swelling, sore throat, fevers, chills, sweats, vomiting, blood in urine or stool, dysuria, urinary frequency or urgency, lightheadedness, dizziness, headache, memory loss, loss of consciousness, rash, abnormal bruising or bleeding, imbalance, focal or generalized weakness, numbness or tingling in arms or legs, generalized arthralgias or myalgias, neck pain, or night sweats. The review of systems is otherwise negative other than for that already noted above, and at least 10 systems have been reviewed. Physical Exam Physical Exam: The patient is awake, alert and oriented 3, well developed and well nourished, normocephalic and atraumatic, lying in bed and in no acute distress. HEENT--PERRL, EOMI, mucous membranes and oropharynx dry. Neck--supple. No JVD. No bruits. Thyroid normal, trachea midline, no adenopathy. Heart--normal S1 and S2. No murmurs, rubs or gallops. Lungs--clear bilaterally, no respiratory distress, no accessory muscle use. Abdomen--normal bowel sounds and soft. mild tenderness epigastric and right upper quadrant pain Extremities-- No edema. Dermatologic--normal skin turgor, normal color, no abnormal lymph nodes, no rash. Neurologic--cranial nerves II through XII grossly intact. Rheumatologic--normal range of motion. Psychiatric--normal affect. Results & Data Results & Data Vital Signs (Past 12 Hours) Vital Signs Temp Pulse Pulse Resp BP BP Pulse Ox 08/12/23 20:46 56 L 18 113/68 100 08/12/23 20:14 36.5 C 55 L 18 100 08/12/23 19:22 53 L 16 121/74 98 08/12/23 18:06 08/12/23 17:56 36.6 C 59 L 24 130/82 96 O2 Del Method 08/12/23 20:46 Room Air 08/12/23 20:14 08/12/23 19:22 Room Air 08/12/23 18:06 Room Air 08/12/23 17:56 Room Air Laboratory Results Laboratory Results WBC 5.94 K/ul (4.8-10.8) 08/12/23 18:00 RBC 4.40 M/uL (4.20-5.40) 08/12/23 18:00 Hgb 12.3 g/dl (12.0-16.0) 08/12/23 18:00 Hct 38.1 % (37.0-47.0) 08/12/23 18:00 MCV 86.6 fL (80.0-100.0) 08/12/23 18:00 MCH 28.0 pg (25.0-34.0) 08/12/23 18:00 MCHC 32.3 g/dL (32.0-36.0) 08/12/23 18:00 RDW Std Deviation 42.0 fL (36.4-46.3) 08/12/23 18:00 RDW Coeff of Adrien 13.3 % (11.5-14.5) 08/12/23 18:00 Plt Count 242 K/uL (130-400) 08/12/23 18:00 MPV 10.5 fL (9.4-12.4) 08/12/23 18:00 Immature Gran % (Auto) 0.2 % 08/12/23 18:00 Neut % (Auto) 68.8 % 08/12/23 18:00 Lymph % (Auto) 24.2 % 08/12/23 18:00 [place] % (Auto) 6.4 % 08/12/23 18:00 Eos % (Auto) 0.2 % 08/12/23 18:00 Baso % (Auto) 0.2 % 08/12/23 18:00 Neut # (Auto) 4.09 K/uL (1.40-6.50) 08/12/23 18:00 Lymph # (Auto) 1.44 K/uL (1.20-3.40) 08/12/23 18:00 [place] # (Auto) 0.38 K/uL (0.11-0.59) 08/12/23 18:00 Eos # (Auto) 0.01 K/uL (0.00-0.50) 08/12/23 18:00 Baso # (Auto) 0.01 K/uL (0.00-0.20) 08/12/23 18:00 Immature Gran # (Auto) 0.01 K/uL (0.01-0.20) 08/12/23 18:00 PT 10.4 Seconds (9.0-12.0) 08/12/23 18:00 INR 0.9 (0.9-1.1) 08/12/23 18:00 Sodium 140 mmol/L (136-145) 08/12/23 18:00 Potassium 3.6 mmol/L (3.5-5.1) 08/12/23 18:00 Chloride 106 mmol/L (98-107) 08/12/23 18:00 Carbon Dioxide 28 mmol/L (21-32) 08/12/23 18:00 Anion Gap 6 (3-11) 08/12/23 18:00 BUN 10 mg/dl (6-23) 08/12/23 18:00 Creatinine 0.97 mg/dl (0.6-1.2) 08/12/23 18:00 Est Cr Clr Drug Dosing 87.9 ml/min 08/12/23 18:00 Est GFR ( Amer) 90.8 ml/min 08/12/23 18:00 Est GFR (Non-Af Amer) 78.4 ml/min 08/12/23 18:00 BUN/Creatinine Ratio 10.3 (10-20) 08/12/23 18:00 Glucose 95 mg/dl (70-99(Fasting)) 08/12/23 18:00 Calcium 9.1 mg/dl (8.6-10.3) 08/12/23 18:00 Total Bilirubin 2.4 mg/dl (0.2-1.0) H 08/12/23 18:00 AST 146 U/L (13-39) H 08/12/23 18:00 ALT 319 U/L (7-52) H 08/12/23 18:00 Alkaline Phosphatase 212 U/L (34-104) H 08/12/23 18:00 Total Protein 7.5 gm/dl (6.0-8.3) 08/12/23 18:00 Albumin 4.2 gm/dl (3.4-5.0) 08/12/23 18:00 Globulin 3.3 gm/dl (2.5-4.0) 08/12/23 18:00 Albumin/Globulin Ratio 1.3 (0.9-2) 08/12/23 18:00 Lipase 6252 U/L (11-82) H 08/12/23 18:00 Urine Color Dark Yellow 08/12/23 18:41 Urine Appearance Clear (Clear) 08/12/23 18:41 Urine pH 5.5 (4.5-7.5) 08/12/23 18:41 Ur Specific [place] 1.014 (1.000-1.030) 08/12/23 18:41 Urine Protein Negative (Negative) 08/12/23 18:41 Urine Glucose (UA) Negative (Negative) 08/12/23 18:41 Urine Ketones Trace (Negative) H 08/12/23 18:41 Urine Blood Negative (Negative) 08/12/23 18:41 Urine Nitrite Negative (Negative) 08/12/23 18:41 Urine Bilirubin 2+ (Negative) H 08/12/23 18:41 Urine Urobilinogen Negative (Negative) 08/12/23 18:41 Ur Leukocyte Esterase Negative (Negative) 08/12/23 18:41 Urine Test Negative (Negative) 08/12/23 18:41 Impressions Gallbladder Ultrasound 08/12/23 18:06 Exam(s): US GALLBLADDER EXAM: US Abdomen Limited, Gallbladder CLINICAL HISTORY: Right upper quadrant pain. TECHNIQUE: Real-time ultrasound of the right upper quadrant with image documentation. COMPARISON: Gallbladder ultrasound 06/07/2017 FINDINGS: Liver: The liver measures 18.3 cm. There is increased echogenicity of the liver. No mass. Gallbladder: Cholelithiasis. Thickening of the gallbladder wall could relate to chronic liver disease or acute cystitis. Common bile duct: Dilated common bile duct measuring 1 cm. No stones. Pancreas: The pancreatic head and body are within normal limits. The tail is not visualized due to overlying bowel gas. Right kidney: The right kidney is unremarkable measuring 9.7 cm. IMPRESSION: 1. Cholelithiasis. Thickening of the gallbladder wall could relate to chronic liver disease or acute cystitis. 2. Dilated common bile duct measuring 1 cm. Consider further evaluation with MRCP. 3. Hepatomegaly with fatty infiltration of the liver. Electronically signed by: Gisel Xiong MD 08/12/23 19:54 PM Cholangiopancreatography MRI 08/12/23 20:00 Exam(s): MRI MRCP EXAM: MR Abdomen Without Intravenous Contrast, MRCP Protocol CLINICAL HISTORY: Reason for exam: concern for gallstone panc, dilated CBD. TECHNIQUE: Multiplanar magnetic resonance images of the abdomen without intravenous contrast using MRCP protocol. COMPARISON: Ultrasound from August 12, 2023 and MRCP from August 11, 2023 FINDINGS: Bile ducts: The common bile duct is nondilated measuring 5 mm. No choledocholithiasis is seen. Gallbladder: The gallbladder is fully distended measuring 5 cm short axis diameter. There are multiple 2-3 mm calcified gallstones within the dependent portion of the gallbladder and a trace amount of pericholecystic fluid suggesting acute cholecystitis. Liver: Unremarkable. Pancreas: There is a slight edema surrounding the body and tail of the pancreas suggesting possible mild acute pancreatitis. No pancreatic duct dilation is seen. Spleen: Unremarkable. No splenomegaly. Adrenals: Unremarkable. No mass. Kidneys and ureters: Unremarkable. No hydronephrosis. Stomach and bowel: Unremarkable. No obstruction. Other findings: The appendix is normal. IMPRESSION: 1. The gallbladder is fully distended measuring 5 cm short axis diameter. There are multiple 2-3 mm calcified gallstones within the dependent portion of the gallbladder and a trace amount of pericholecystic fluid suggesting acute cholecystitis. 2. There is a slight edema surrounding the body and tail of the pancreas suggesting possible mild acute pancreatitis. This is new. No pancreatic duct dilation is seen. No pseudocyst. 3. The common bile duct is nondilated measuring 5 mm. No choledocholithiasis is seen. Electronically signed by: Yeison Lo MD 08/13/23 01:13 AM Code Status & VTE Plan Code Status Full code VTE Prophylaxis Plan VTE Prophylaxis will be ordered: Yes PG Care Time/CCT Total # of Minutes Spent Total Time Spent with Patient: Total time spent is greater than 50% in coordination of care (as documented) at patient's floor/unit and/or counseling patient: Coding Level of Care Code 33399 INT INP/OBS CARE 2/55MIN Diagnoses Acute cholecystitis K81.0 Acute gallstone pancreatitis K85.10 Common bile duct dilation K83.8
[2023-08-12] MEDS: HYDROmorphone INJ 0.5 MG/0.5 ML SYR IV STA (22:34)
[2023-08-12] MEDS: PROCHLORPERAZINE 5 MG in SYRINGE 4 ML IV ONE (22:34)
[2023-08-12] MEDS ORDERED: ONDANSETRON INJ 2 MG/ML 2 ML VIAL IV PRN (23:45)
[2023-08-12] MEDS ORDERED: HYDROmorphone INJ 0.5 MG/0.5 ML SYR IV PRN ×2 (23:45)
[2023-08-13] MEDS: NSS + 20MEQ KCL 20 MEQ/1,000 ML BAG IV SCH (00:49)
--- NOTE | 2023-08-13 01:14 | Magnetic Resonance Report ---
Exam(s): MRI MRCP EXAM: MR Abdomen Without Intravenous Contrast, MRCP Protocol CLINICAL HISTORY: Reason for exam: concern for gallstone panc, dilated CBD. TECHNIQUE: Multiplanar magnetic resonance images of the abdomen without intravenous contrast using MRCP protocol. COMPARISON: Ultrasound from August 12, 2023 and MRCP from August 11, 2023 FINDINGS: Bile ducts: The common bile duct is nondilated measuring 5 mm. No choledocholithiasis is seen. Gallbladder: The gallbladder is fully distended measuring 5 cm short axis diameter. There are multiple 2-3 mm calcified gallstones within the dependent portion of the gallbladder and a trace amount of pericholecystic fluid suggesting acute cholecystitis. Liver: Unremarkable. Pancreas: There is a slight edema surrounding the body and tail of the pancreas suggesting possible mild acute pancreatitis. No pancreatic duct dilation is seen. Spleen: Unremarkable. No splenomegaly. Adrenals: Unremarkable. No mass. Kidneys and ureters: Unremarkable. No hydronephrosis. Stomach and bowel: Unremarkable. No obstruction. Other findings: The appendix is normal. IMPRESSION: 1. The gallbladder is fully distended measuring 5 cm short axis diameter. There are multiple 2-3 mm calcified gallstones within the dependent portion of the gallbladder and a trace amount of pericholecystic fluid suggesting acute cholecystitis. 2. There is a slight edema surrounding the body and tail of the pancreas suggesting possible mild acute pancreatitis. This is new. No pancreatic duct dilation is seen. No pseudocyst. 3. The common bile duct is nondilated measuring 5 mm. No choledocholithiasis is seen. Electronically signed by: Yeison Lo MD 08/13/23 01:13 AM
[2023-08-13] MEDS: PIPERACILLIN/TAZOBACTAM 4.5 GM in DEXTROSE 5% MINI-B 100 ML IV SCH (01:42)
[2023-08-13 06:27] LABS: Basophils # (auto) 0.01 K/uL (0.00-0.20); Basophils % (auto) 0.2 %; Eosinophils # (auto) 0.03 K/uL (0.00-0.50); Eosinophils % (auto) 0.7 %; Hematocrit (blood only) 32.8 % (37.0-47.0); Hemoglobin 10.6 g/dl (12.0-16.0); Lymphocytes # (auto) 1.58 K/uL (1.20-3.40); Lymphocytes % (auto) 36.6 %; Mean Corpuscular Hemoglobin 28.3 pg (25.0-34.0); Mean Corpuscular Hgb Conc 32.3 g/dL (32.0-36.0); Mean Corpuscular Volume 87.7 fL (80.0-100.0); Mean Platelet Volume 10.7 fL (9.4-12.4); Monocytes # (auto) 0.33 K/uL (0.11-0.59); Monocytes % (auto) 7.6 %; Neutrophils # (auto) 2.37 K/uL (1.40-6.50); Neutrophils % (auto) 54.9 %; Platelet Count 220 K/uL (130-400); RDW Coefficient of Variation 13.5 % (11.5-14.5); RDW Standard Deviation 42.9 fL (36.4-46.3); Red Blood Count 3.74 M/uL (4.20-5.40); White Blood Count 4.32 K/ul (4.8-10.8)
[2023-08-13 06:40] LABS: Albumin Globulin Ratio 1.3 (0.9-2); Albumin Level 3.5 gm/dl (3.4-5.0); BUN Creatinine Ratio 9.4 (10-20); Bilirubin,Total 1.2 mg/dl (0.2-1.0); Calcium 8.4 mg/dl (8.6-10.3); Creatinine Clr Calc Pharmacy 87.4 ml/min; Est GFR (Non-African American) 79.4 ml/min; Globulin 2.7 gm/dl (2.5-4.0); Potassium 3.7 mmol/L (3.5-5.1); Total Protein 6.2 gm/dl (6.0-8.3)
[2023-08-13] MEDS ORDERED: MIDAZOLAM HCL 1 MG/ML 2ML VIAL ONE (08:06)
[2023-08-13] MEDS ORDERED: PROPOFOL IV EMULSION 10 MG/ML 20 ML VIAL IV ONE ×2 (08:06→10:07)
[2023-08-13] MEDS ORDERED: LIDOCAINE 2% 2 ML VIAL/AMP(20MG/ML) INFIL ONE (08:06)
[2023-08-13] MEDS ORDERED: ONDANSETRON INJ 2 MG/ML 2 ML VIAL ONE (08:06)
[2023-08-13] MEDS ORDERED: DEXAMETHASONE SOD INJ 4 MG/ML VIAL ONE (08:06)
[2023-08-13] MEDS ORDERED: SUCCINYLCHOLINE CHLORIDE 20 MG/ML 10 ML VIAL IV ONE (08:06)
[2023-08-13] MEDS ORDERED: fentaNYL citrate PF 100 MCG/2 ML VIAL ONE (08:06)
--- NOTE | 2023-08-13 08:06 | Hospitalist Progress Note ---
Date of Service August 13, 2023 Assessment & Plan (1) Choledocholithiasis with acute cholecystitis with obstruction: Plan: 28 F with no significant past medical history who presented to the emergency room with nausea, vomiting, and abdominal pain x 4 days. Admitted to the hospital for acute management of choledocholithiasis with acute cholecystitis. Now s/p ERCP. Choledocholithiasis with Acute Cholecystitis with Obstruction/Acute Pancreatitis -Acute. Patient does report history of -associated cholecystitis dating back to first at age 24. Youngest child is now 4 months old. -Lipase 6252, AST/ALT 319/212, alk phos 212. Now downtrending (lipase-1841, AST/ALT-85/216, alk phos-152). No leukocytosis. -Gallbladder U/S: Thickening of the gb wall c/f acute cystitis, chronic liver disease; dilated CBD measuring 1 cm; hepatomegaly with fatty infiltration. -MRCP: Full distention of gallbladder measuring 5 cm at short axis, multiple 2 to 3 mm calcified gallstones within the dependent portion of the gallbladder and trace amount of pericholecystic fluid suggesting acute cholecystitis; slight edema surrounding body and tail of pancreas suggesting mild acute pancreatitis (no pseudocyst, pancreatic ductal dilation); nondilated CBD measuring 5 mm. -S/p ERCP 08/12, biliary sphincterotomy. -Tolerating clears successfully at present. * Continue gentle p.o. intake with clears; continue maintenance IV fluids * Pain control regimen: IV Dilaudid 0.25 mg, 0.5 mg every 3 hours as needed * IV Zofran 4 mg every 6 hours as needed for nausea * Refer to general surgery for elective cholecystectomy (consult placed) * Repeat ERCP x 6 weeks to remove stent, after cholecystectomy * Continue IV Zosyn * Clear liquid diet * Trend LFTs, transaminases Code: Full code Dispo: Med-Surg FEN/GI: Clears DVT Prophylaxis: Heparin 5000 u q12h, starting 08/13 PT/OT: No Consults: Gastroenterology, General Surgery Case Management: No (2) Acute cholecystitis: (3) Acute gallstone pancreatitis: (4) Common bile duct dilation: Admission and Anticipated Discharge Date Admission Date: August 12, 2023 Supervising Physician Co-Signing Physician Notes I personally examined the patient and verified grimes points of history and exam, discussed case, and agree with decision making and plan documented by Dr. Madison. Evaluated patient at bedside status post ERCP and stent placement. Symptoms of pain, vomiting, and nausea have improved. Patient tolerating p.o. liquids, discussed slow advance. Surgical recommendation to pursue outpatient cholecystectomy. Subjective Patient is resting in bed comfortably s/p ERCP. She denies nausea, abdominal pain, headache. She has already trialed clear liquids, with some success. ROS + fatigue only. Review of Systems Review of Systems: All systems reviewed & are unremarkable except as noted in HPI & below Physical Exam Physical Exam: General: No acute distress HEENT: PERRLA. Normal conjunctiva, anicteric sclera. Oropharynx normal. Respiratory: Normal respiratory effort, CTABL. Cardiovascular: RRR without murmurs, gallops, or rubs. No pedal edema. Neuro: Alert and oriented x3. Results & Data Results & Data Vital Signs (Past 12 Hours) Vital Signs Temp Pulse Pulse Resp BP Pulse Ox O2 Del Method 08/13/23 07:58 36.6 C 74 18 117/72 6 L Room Air 08/12/23 23:49 36.4 C L 54 L 16 125/84 94 Room Air 08/12/23 22:41 66 08/12/23 22:40 60 16 134/84 95 Room Air 08/12/23 20:46 56 L 18 113/68 100 Room Air 08/12/23 20:14 36.5 C 55 L 18 100 Resident Activity Tracking Resident Involvement: Resident Care Provided Care Provided: Adult Hospital Medicine
[2023-08-13] MEDS ORDERED: ROCURONIUM BROMIDE 10 MG/ML 5 ML VIAL IV ONE (08:07)
[2023-08-13] MEDS ORDERED: fentaNYL citrate PF 100 MCG/2 ML VIAL IV PRN (08:39)
[2023-08-13] MEDS ORDERED: ONDANSETRON INJ 2 MG/ML 2 ML VIAL IV PRN (08:39)
[2023-08-13] MEDS ORDERED: HYDROmorphone INJ 1 MG/ML SYRINGE IV PRN (08:39)
[2023-08-13] MEDS ORDERED: ePHEDrine sulfate 50 MG/ML AMP IV PRN (08:39)
[2023-08-13] MEDS ORDERED: ATROPINE SULFATE 0.1 MG/ML 10ML SYR IV PRN (08:39)
--- NOTE | 2023-08-13 08:39 | Anesthesiology Consultation ---
Date of Service August 13, 2023 Assessment & Plan ASA ASA2 Proposed Anesthesia Anesthesia Type: General Risk / Benefits Reviewed With: PT / POA / Parent / Guardian, Accepts Plan and Informed Consent Obtained History Surgery Operation Date: 08/13/23 08:30 Proposed Procedures p Endoscopic Retrograde Cholangiopancreato - Simone Mendoza DO Height/Weight Height: 5 ft 2 in Weight: 86.4 kg Allergies Allergy/AdvReac Type Severity Reaction Status Date / Time No Known Allergies Allergy Verified 08/12/23 20:15 Medications Home Medications Medication Instructions Recorded Confirmed Last Taken citalopram 10 mg tablet 10 mg PO DAILY 08/11/23 08/12/23 08/12/23 famotidine 20 mg tablet 20 mg PO BID 08/11/23 08/12/23 08/12/23 08:00 omeprazole 20 mg capsule,delayed 20 mg PO DAILY 08/11/23 08/12/23 08/12/23 release ondansetron HCl 4 mg tablet 4 mg PO BID PRN NAUSEA/VOMITING 08/11/23 08/12/23 Unknown ciprofloxacin HCl 500 mg tablet 500 mg PO Q12H 10 days #20 tabs 08/12/23 08/12/23 Unknown metronidazole 500 mg tablet 500 mg PO Q8H 10 days #30 tabs 08/12/23 08/12/23 Unknown Active Medications Generic Name Dose Route Start Last Admin Trade Name Freq PRN Reason Stop Dose Admin Piperacillin Sod/Tazobactam 100 mls @ 25 mls/hr 08/13/23 02:00 08/13/23 05:53 Sod 4.5 gm/ Dextrose IV 08/23/23 01:59 Infused Q8H KERVIN Infusion Protocol Potassium Chloride/Sodium Chloride 20 meq in 1,000 mls @ 100 mls/hr 08/13/23 00:30 08/13/23 00:49 Normal Saline W/20 Meq Kcl IV 09/12/23 00:29 100 mls/hr .Q10H KERVIN Administration Protocol NPO Date Last Intake of Fluids: 08/12/23 Time Last Intake of Fluids: 10:00 Date Last Intake of Solids: 08/10/23 Time Last Intake of Solids: 00:00 Past Medical History Medical History Sinus congestion Exercise / Class Metabolic Activity II 4-5 Yardwork/Stairs/Walk up hill Past Family History Family History Other Asthma Past Surgical History Surgical History History of Past Anesthesia History No Hx of Anesthesia Complications and No Family Hx of Anesthesia Complications History of PONV No Hx of PONV and No Hx of Motion Sickness Social History Smoking Status: Never smoker Hx Alcohol Use: Yes alcohol intake frequency: holidays/special occasions only Hx Substance Use: No Review of Systems denies fever/cough/ colds/ chest pain/ SOB/ ROCK denies ROCK Physical Exam Vital Signs Last Vital Signs Temp 36.5 C 08/13/23 08:21 Pulse 70 08/13/23 08:21 Resp 18 08/13/23 08:21 BP 116/79 08/13/23 08:21 Pulse Ox 99 08/13/23 08:21 O2 Del Method Room Air 08/13/23 08:21 ENMT Mouth: no TMJ abnormality and no dentition abnormality Thyromental Distance: > or= 3.5 Finger Breadths Mallampati Class: II Neck neck extension not limited Respiratory normal respiratory effort; no respiratory distress Auscultation: lungs clear to auscultation bilaterally Cardiovascular Rate/Rhythm: regular rate and regular rhythm Neurologic moves all extremities Psychiatric Orientation: alert and oriented x 3 Testing Laboratory Results 08/13/23 05:26 08/13/23 05:26 PT 10.4 Seconds (9.0-12.0) 08/12/23 18:00 INR 0.9 (0.9-1.1) 08/12/23 18:00 Urine Color Dark Yellow 08/12/23 18:41 Urine Appearance Clear (Clear) 08/12/23 18:41 Urine pH 5.5 (4.5-7.5) 08/12/23 18:41 Ur Specific [place] 1.014 (1.000-1.030) 08/12/23 18:41 Urine Protein Negative (Negative) 08/12/23 18:41 Urine Glucose (UA) Negative (Negative) 08/12/23 18:41 Urine Ketones Trace (Negative) H 08/12/23 18:41 Urine Nitrite Negative (Negative) 08/12/23 18:41 Ur Leukocyte Esterase Negative (Negative) 08/12/23 18:41 Urine Test Negative (Negative) 08/12/23 18:41 08/12/23 18:41 Urine Test Negative
--- NOTE | 2023-08-13 08:57 | Gastrointestinal Consultation ---
Date of Consultation August 13, 2023 Assessment & Plan (1) Acute cholecystitis: (2) Acute gallstone pancreatitis: Pt is a 28 yo female w abd pain, n/v symptoms, noted to have elevated LFTs, lipase and abd imaging studies evidence of gallstones, cholecystitis, pancreatitis. Suspect gallstone pancreatitis though wo CBD dilation or obvious choledocholithiasis noted on MRCP - Zosyn IV - NPO - Plan for ERCP in OR by Dr. Mendoza today - IVF support w LR - Surgery to eval for cholecystectomy - Trend LFTs - Symptomatic management with analgesics and antiemetics prn Supervising Physician Co-Signing Physician Notes I saw and evaluated the patient, she is present with intermittent abdominal discomfort that has been ongoing for. Of note she did have recent delivery baby. She recalls that she began to develop some symptoms shortly into her second trimester. The patient was found to have elevation of her liver associated enzymes and imaging that shows numerous stones within her gallbladder. There is a question of dilation of the common bile duct however no obvious gallstones noted on MRCP or ultrasound. Patient's bilirubin is elevated. It is quite possible that the patient did pass common bile duct stone, given the discrepancy we will proceed with upper endoscopy, endoscopic ultrasound and likely ERCP if gallstones found. We discussed risks and benefits of the procedures to include bleeding, infection, perforation, pain, pancreatitis and increased risk of post ERCP complications such as pancreatitis given the patient's young age and gender. History of Present Illness Reason for Consultation: Gallstone pancreatitis Requesting Physician: Dr. Jeanna Nielsen Attending Physician: Dr. Simone Mendoza History of Present Illness Pt is a 28 yo female who was seen for upper abd pain, nausea, vomiting symptoms. She's been unable to eat for over 4 days now. Denies fever, chills, CP, SOB. On eval, noted to have no leukocytosis, but LFTs elevated: Tbili 1.2, AST 85, ALT 216, Alk phos 152, lipase 1841. Gallbladder u/s and MRCP abd showed signs of gallstone w acute cholecystitis, pancreatitis wo ductal dilation. CBD 5mm on MRCP wo obvious choledocholithiasis. Allergies Allergy/AdvReac Type Severity Reaction Status Date / Time No Known Allergies Allergy Verified 08/12/23 20:15 Home Medications Medication Instructions Recorded Confirmed Type citalopram 10 mg tablet 10 mg PO DAILY 08/11/23 08/12/23 History famotidine 20 mg tablet 20 mg PO BID 08/11/23 08/12/23 History omeprazole 20 mg capsule,delayed 20 mg PO DAILY 08/11/23 08/12/23 History release ondansetron HCl 4 mg tablet 4 mg PO BID PRN NAUSEA/VOMITING 08/11/23 08/12/23 History ciprofloxacin HCl 500 mg tablet 500 mg PO Q12H 10 days #20 tabs 08/12/23 08/12/23 Rx metronidazole 500 mg tablet 500 mg PO Q8H 10 days #30 tabs 08/12/23 08/12/23 Rx Patient History Medical History Sinus congestion Surgical History History of Family History Other Asthma Social History Smoking Status: Never smoker Tobacco Type: Cigarettes Hx Alcohol Use: Yes Hx Substance Use: No Preferred Language: [place] Communication Ability: Effective Smt Technician Required: No Beliefs That Will Affect Care: None Current Living Situation: Spouse and Family Other Information That Helps Us Care for You: No Feels Safe at Home: Yes Safety Concerns: Feels Safe At This Time Assistive Devices: None Review of Systems Review of Systems: All systems reviewed & are unremarkable except as noted in HPI & below Physical Exam Constitutional: WD/WN, vitals as above well groomed, cooperative and comfortable Eyes: PERRL, conjunctivae normal, anicteric sclerae ENMT: external ear and nose normal, oropharynx normal Respiratory: normal respiratory effort, lungs clear to auscultation Cardiovascular: RRR, no murmur, no edema Gastrointestinal (Abdomen): Soft, TTP diffuse, BS hypoactive Skin: no rashes, warm and dry no jaundice Psychiatric: A+Ox3, euthymic affect Lymphatic: no lymphedema Results & Data Vital Signs (Past 12 Hours) Vital Signs Temp Pulse Pulse Resp BP Pulse Ox O2 Del Method 08/13/23 08:21 36.5 C 70 18 116/79 99 Room Air 08/13/23 07:58 36.6 C 74 18 117/72 6 L Room Air 08/12/23 23:49 36.4 C L 54 L 16 125/84 94 Room Air 08/12/23 22:41 66 08/12/23 22:40 60 16 134/84 95 Room Air
--- NOTE | 2023-08-13 10:04 | GI REPORT ---
Patient Name: Linda Davison Procedure Date: 08/13/2023 9:41 AM Date of : 1995 Admit Type: Inpatient Age: 28 Gender: Female Attending MD: Simone Mendoza DO, Procedure: Upper GI endoscopy Providers: Simone Mendoza DO Referring MD: Jeanna Nielsen Do Indications: Epigastric abdominal pain Medicines: General Anesthesia Complications: No immediate complications. Estimated blood loss: Minimal. Estimated Blood Loss: Estimated blood loss was minimal. Procedure: Pre-Anesthesia Assessment: - Prior to the procedure, a History and Physical was performed, and patient medications, allergies and sensitivities were reviewed. The patient's tolerance of previous anesthesia was reviewed. - The risks and benefits of the procedure and the sedation options and risks were discussed with the patient. All questions were answered and informed consent was obtained. - Patient identification and proposed procedure were verified prior to the procedure by the physician, the nurse and the gate agent. The procedure was verified in the procedure room. - Pre-procedure physical examination revealed no contraindications to sedation. - ASA Grade Assessment: II - A patient with mild systemic disease. - After reviewing the risks and benefits, the patient was deemed in satisfactory condition to undergo the procedure. - The anesthesia plan was to use general anesthesia. - Immediately prior to administration of medications, the patient was re-assessed for adequacy to receive sedatives. - The heart rate, respiratory rate, oxygen saturations, blood pressure, adequacy of pulmonary ventilation, and response to care were monitored throughout the procedure. - The physical status of the patient was re-assessed after the procedure. After obtaining informed consent, the endoscope was passed under direct vision. Throughout the procedure, the patient's blood pressure, pulse, and oxygen saturations were monitored continuously. The Scope was introduced through the mouth, and advanced to the third part of duodenum. The upper GI endoscopy was accomplished without difficulty. The patient tolerated the procedure well. Findings: The examined esophagus was normal. The Z-line was regular and was found 33 cm from the incisors. Diffuse moderate inflammation characterized by congestion (edema), erythema and granularity was found in the entire examined stomach. Biopsies were taken with a cold forceps for histology. The pathology specimen was placed into Bottle A. Estimated blood loss was minimal. The examined duodenum was normal. Impression: - Normal esophagus. - Z-line regular, 33 cm from the incisors. - Gastritis. Biopsied. - Normal examined duodenum. Recommendation: - Perform an upper endoscopic ultrasound (UEUS) today. - Await pathology results. Simone Mendoza D.O. Simone Mendoza, 08/13/2023 10:03:38 AM This report has been signed electronically. Note Initiated On: 08/13/2023 9:41 AM Number of Addenda: 0 I attest to the content of the Intraoperative Record and orders documented therein, exceptions below {[id number]}
[2023-08-13] MEDS ORDERED: SUGAMMADEX SODIUM 200 MG/2 ML VIAL IV ONE (10:11)
--- NOTE | 2023-08-13 10:37 | Post Operative Brief Note ---
Immediate Post Op Note v1 Date of Surgery August 13, 2023 Pre & Post Diagnosis Operation Date: 08/13/23 08:30 Pre-Op Diagnosis: GALLSTONE PANCREATITIS I identified the patient and participated in the time-out.: Yes Procedure Operation Date: 08/13/23 08:30 Actual Procedures p EGD Biopsy - Simone Mendoza DO p Endoscopic Retrograde Cholangiopancreato - Simone Mendoza DO s Endoscopic Ultrasonography Upper - Simone Mendoza DO Surgeon Simone Mendoza, Tune Up Mechanic none Estimated Blood Loss 0 Findings Consistent with Post-Op Diagnosis
--- NOTE | 2023-08-13 10:39 | Communication Note ---
Date of Service: August 13, 2023 The patient underwent upper endoscopy, endoscopic ultrasound and ERCP for choledocholithiasis. We were able to remove a gallstone from the distal common bile duct and treat papillary stenosis with biliary sphincterotomy. Recommendations Repeat ERCP for stent removal in 6 to 8 weeks Cholecystectomy per general surgery Avoid nonsteroidals for 1 week Please call with any questions or concerns GI to sign off
--- NOTE | 2023-08-13 10:42 | GI REPORT ---
Patient Name: Linda Davison Procedure Date: 08/13/2023 9:39 AM Date of : 1995 Admit Type: Inpatient Age: 28 Gender: Female Attending MD: Simone Mendoza DO, Procedure: Upper EUS Providers: Simone Mendoza DO Referring MD: Thai Yusuf Indications: Elevated liver enzymes, Suspected choledocholithiasis Medicines: General Anesthesia Complications: No immediate complications. Estimated blood loss: Minimal. Estimated Blood Loss: Estimated blood loss was minimal. Procedure: Pre-Anesthesia Assessment: - Prior to the procedure, a History and Physical was performed, and patient medications, allergies and sensitivities were reviewed. The patient's tolerance of previous anesthesia was reviewed. - The risks and benefits of the procedure and the sedation options and risks were discussed with the patient. All questions were answered and informed consent was obtained. - Patient identification and proposed procedure were verified prior to the procedure by the physician, the nurse and the medication nurse. The procedure was verified in the procedure room. - Pre-procedure physical examination revealed no contraindications to sedation. - ASA Grade Assessment: II - A patient with mild systemic disease. - After reviewing the risks and benefits, the patient was deemed in satisfactory condition to undergo the procedure. - The anesthesia plan was to use general anesthesia. - Immediately prior to administration of medications, the patient was re-assessed for adequacy to receive sedatives. - The heart rate, respiratory rate, oxygen saturations, blood pressure, adequacy of pulmonary ventilation, and response to care were monitored throughout the procedure. - The physical status of the patient was re-assessed after the procedure. After obtaining informed consent, the endoscope was passed under direct vision. Throughout the procedure, the patient's blood pressure, pulse, and oxygen saturations were monitored continuously. The Endosonoscope was introduced through the mouth, and advanced to the second part of duodenum. The upper EUS was accomplished without difficulty. The patient tolerated the procedure well. Findings: ENDOSONOGRAPHIC FINDING: : An impacted stone was noted in the ampulla with upstream CBD dilation. There was dilation in the common bile duct which measured up to 7 mm. Multiple stones were visualized endosonographically in the gallbladder. They were hyperechoic and characterized by shadowing. There was no sign of significant endosonographic abnormality in the entire pancreas. No masses, no cysts, no calcifications, the pancreatic duct was thin in caliber. There was no sign of significant endosonographic abnormality in the left adrenal gland. No adrenal gland enlargement was identified. Impression: - There was dilation in the common bile duct which measured up to 7 mm. - Multiple stones were visualized endosonographically in the gallbladder. - There was no sign of significant pathology in the entire pancreas. - Endosonographic images of the left adrenal gland were unremarkable. - No specimens collected. Recommendation: - Perform an ERCP today. Simone Mendoza D.O. Simone Mendoza, 08/13/2023 10:42:23 AM This report has been signed electronically. Note Initiated On: 08/13/2023 9:39 AM Number of Addenda: 0 I attest to the content of the Intraoperative Record and orders documented therein, exceptions below {[id number]}
--- NOTE | 2023-08-13 10:45 | GI REPORT ---
Patient Name: Linda Davison Procedure Date: 08/13/2023 9:42 AM Date of : 1995 Admit Type: Inpatient Age: 28 Gender: Female Attending MD: Simone Mendoza DO, Procedure: ERCP Providers: Simone Mendoza DO Referring MD: Jenana Nielsen Do Indications: Abdominal pain of suspected biliary origin, For therapy of bile duct stone(s) Medicines: General Anesthesia Complications: No immediate complications. Estimated blood loss: Minimal. Estimated Blood Loss: Estimated blood loss was minimal. Procedure: Pre-Anesthesia Assessment: - Prior to the procedure, a History and Physical was performed, and patient medications, allergies and sensitivities were reviewed. The patient's tolerance of previous anesthesia was reviewed. - The risks and benefits of the procedure and the sedation options and risks were discussed with the patient. All questions were answered and informed consent was obtained. - Patient identification and proposed procedure were verified prior to the procedure by the physician, the nurse and the marzipan molder. The procedure was verified in the procedure room. - Pre-procedure physical examination revealed no contraindications to sedation. - ASA Grade Assessment: II - A patient with mild systemic disease. - After reviewing the risks and benefits, the patient was deemed in satisfactory condition to undergo the procedure. - The anesthesia plan was to use general anesthesia. - Immediately prior to administration of medications, the patient was re-assessed for adequacy to receive sedatives. - The heart rate, respiratory rate, oxygen saturations, blood pressure, adequacy of pulmonary ventilation, and response to care were monitored throughout the procedure. - The physical status of the patient was re-assessed after the procedure. After obtaining informed consent, the scope was passed under direct vision. Throughout the procedure, the patient's blood pressure, pulse, and oxygen saturations were monitored continuously. The Duodenoscope was introduced through the mouth, and advanced to the duodenum and used to inject contrast into the bile duct. The ERCP was accomplished without difficulty. The patient tolerated the procedure well. Findings: The room service waiter/waitress film was normal. The esophagus was successfully intubated under direct vision without detailed examination of the pharynx, larynx, and associated structures, and upper GI tract. The upper GI tract was grossly normal. The major papilla was normal. The bile duct was deeply cannulated with the short-nosed traction sphincterotome and guidewire (PD not cannulated or injected today). Contrast was injected. I personally interpreted the bile duct images. Contrast extended to the bifurcation. The biliary orifice was stenotic. This appeared benign. The lower third of the main bile duct contained one stone, which was 5 mm in diameter. Biliary sphincterotomy was made with a monofilament Fusion OMNI sphincterotome using ERBE electrocautery. There was no post-sphincterotomy bleeding. To discover objects, the biliary tree was swept with a 15 mm balloon starting at the bifurcation. One stone was removed. No stones remained. One 10 Fr by 7 cm biliary stent with a single external flap and a single internal flap was placed 7 cm into the common bile duct. Bile flowed through the stent. The stent was in good position. The endoscope was withdrawn from the patient. Indomethacin 100 mg was given via suppository to decrease the risk of post-ERCP pancreatitis (PEP). Impression: - The major papilla appeared normal. - Biliary papillary stenosis, benign. - Choledocholithiasis was found. Complete removal was accomplished by biliary sphincterotomy and balloon extraction. - A biliary sphincterotomy was performed. - The biliary tree was swept. - One biliary stent was placed into the common bile duct. - Indomethacin given to decrease risk of post-ERCP pancreatitis. Recommendation: - Avoid aspirin and nonsteroidal anti-inflammatory medicines for 1 week. - Clear liquid diet today. - Repeat ERCP in 6 weeks to remove stent (after cholecystectomy). - Refer to a surgeon to discuss cholecystectomy. Simone Mendoza D.O. Simone Mendoza, 08/13/2023 10:45:21 AM This report has been signed electronically. Note Initiated On: 08/13/2023 9:42 AM Number of Addenda: 0 I attest to the content of the Intraoperative Record and orders documented therein, exceptions below {[id number]}
--- NOTE | 2023-08-13 10:58 | Fluoroscopy Report ---
INTRAOPERATIVE RADIOGRAPHS CLINICAL HISTORY: ERCP. Fluoro time: 23 seconds Ka,r: 4.44 mGy FINDINGS: 7 spot fluoroscopic views of the right upper quadrant from an ERCP procedure are correlated with abdominal ultrasound and MRCP dated 08/12/2023. A wire is advanced into the common bile duct. In jected contrast shows a normal caliber common bile duct. A filling defect in the distal common duct l ikely represents choledocholithiasis. The final image shows a common bile duct stent in place. IMPRESSION: Intraoperative ERCP images as above. See operative report for detailed findings. Electronically signed by: Ej Richey M.D. 08/13/2023 10:56 AM
--- NOTE | 2023-08-13 11:00 | Anesthesiology Progress Note ---
Date of Service August 13, 2023 Anesthesia Post Procedure Vital Signs Vital Signs: Temp Pulse Pulse Pulse Resp BP BP 08/13/23 10:50 67 19 122/81 08/13/23 10:43 77 24 122/74 08/13/23 10:36 36.0 C L 72 23 110/72 08/13/23 08:21 36.5 C 70 18 116/79 08/13/23 07:58 36.6 C 74 18 117/72 08/12/23 23:49 36.4 C L 54 L 16 125/84 08/12/23 22:41 66 08/12/23 22:40 60 16 134/84 08/12/23 20:46 56 L 18 113/68 08/12/23 20:14 36.5 C 55 L 18 08/12/23 19:22 53 L 16 121/74 08/12/23 18:06 08/12/23 17:56 36.6 C 59 L 24 130/82 Pulse Ox O2 Del Method O2 Flow Rate 08/13/23 10:50 93 Room Air 0 08/13/23 10:43 97 Oxymask 4 08/13/23 10:36 97 Oxymask 4 08/13/23 08:21 99 Room Air 08/13/23 07:58 6 L Room Air 08/12/23 23:49 94 Room Air 08/12/23 22:41 08/12/23 22:40 95 Room Air 08/12/23 20:46 100 Room Air 08/12/23 20:14 100 08/12/23 19:22 98 Room Air 08/12/23 18:06 Room Air 08/12/23 17:56 96 Room Air Pain Intensity Upper Abdomen: Pain Intensity: 6 Transfer of Care Handoff Completed per policy Notes Mental Status: alert / awake / arousable and participated in evaluation Patient Amnestic to Procedure: Yes Nausea / Vomiting: adequately controlled Pain: adequately controlled Airway Patency, RR, SpO2: stable & adequate BP & HR: stable & adequate Hydration State: stable & adequate Anesthetic Complications: no major complications apparent and Pt Satisfied with anesthetic care
[2023-08-13] MEDS: INDOMETHACIN 50 MG SUPP PR ONE ×2 (12:01→12:02)
--- NOTE | 2023-08-13 12:05 | Electrocardiogram Report ---
Test Reason : Blood Pressure : / mmHG Vent. Rate : 056 BPM Atrial Rate : 056 BPM P-R Int : 138 ms QRS Dur : 084 ms QT Int : 432 ms P-R-T Axes : 056 021 009 degrees QTc Int : 416 ms Sinus bradycardia Otherwise normal ECG When compared with ECG of 28-JUL-2017 00:22, No significant change was found Confirmed by Francisco Nash ([id number]) on 08/13/2023 12:04:58 PM Referred By: REFERRED SELF Confirmed By:Jose Nash
[2023-08-13] MEDS: PANTOprazole 40 MG in SYRINGE 0 ML IV SCH (12:55)
--- NOTE | 2023-08-13 17:07 | Surgery Consultation ---
Date of Consultation August 13, 2023 Assessment & Plan (1) Acute gallstone pancreatitis: (2) Acute cholecystitis: (3) Choledocholithiasis with acute cholecystitis with obstruction: Plan 28 year-old female with gallstone pancreatitis and choledocholithiasis who is s/p ERCP with biliary stent placement today by GI. Discussed with patient indication for laparoscopic cholecystectomy to prevent future biliary obstruction/complications. Since her pain is resolved and she has no leuko cytosis options are to do cholecystectomy during this admission or do as outpatient as she has a biliary stent placed. She would like to schedule as an outpatient so she can ensure she has childcare set up for her children (4 month old and 8 year old). I think this is reasonable as her labs are improving and pain resolved. Will get her set up to see Dr. Govea in clinic next week to schedule outpatient laparoscopic cholecystectomy in next few weeks. Recommend following t. bili and lfts and lipase continue medical management discussed with hospitalist Dr. Govea has seen patient and agrees with above. Supervising Physician Co-Signing Physician Notes I have seen and examined the patient personally and agree with the above assessment and plan. She is status post ERCP with stent placement and stone extraction. She states she is feeling no pain at this time. She is very anxious to get home to her children. We discussed the option of cholecystectomy now or in the near future. She would like to pursue outpatient cholecystectomy. We will have her follow-up with us in clinic early next week to schedule outpatient cholecystectomy. History of Present Illness Reason for Consultation: Gallstone pancreatitis Requesting Physician: Jeanna Nielsen DO Attending Physician: Jeanna Nielsen DO History of Present Illness Linda is a 28 year-old female who is 4 months s/p presented to ED initially on 08/11/2023 for abdominal pain for 4 days with nausea and vomiting. She elected to have outpatient followup with surgeon in [place] and was discharged from emergency department however presented back due to increasing abdominal pain and inability to eat. She had no leuckotysis but LFTs elevated: Tbili 1.2, AST 85, ALT 216, Alk phos 152, lipase 1841. Gallbladder u/s and MRCP abd showed signs of gallstone w acute cholecystitis, pancreatitis wo ductal dilation. CBD 5mm on MRCP wo obvious choledocholithiasis. She underwent ERCP today which showed choledocholithiasis. Stent placed. Our services consulted for discussion of cholecystectomy She currently states that her abdominal pain , nausea, and vomiting are completely resolved. Able to drink clear liquids this afternoon without any recurrence of symptoms. She states she has a consultation with general surgeon in [place] on August 22 but they are scheduling 3 months out. She has 4 month old and 8 year old at home and would like to consider outpatient surgery to get childcare set up. Allergies Allergy/AdvReac Type Severity Reaction Status Date / Time No Known Allergies Allergy Verified 08/12/23 20:15 Home Medications Medication Instructions Recorded Confirmed Type citalopram 10 mg tablet 10 mg PO DAILY 08/11/23 08/12/23 History famotidine 20 mg tablet 20 mg PO BID 08/11/23 08/12/23 History omeprazole 20 mg capsule,delayed 20 mg PO DAILY 08/11/23 08/12/23 History release ondansetron HCl 4 mg tablet 4 mg PO BID PRN NAUSEA/VOMITING 08/11/23 08/12/23 History ciprofloxacin HCl 500 mg tablet 500 mg PO Q12H 10 days #20 tabs 08/12/23 08/12/23 Rx metronidazole 500 mg tablet 500 mg PO Q8H 10 days #30 tabs 08/12/23 08/12/23 Rx Patient History Medical History Sinus congestion Surgical History History of Family History Other Asthma Social History Smoking Status: Never smoker Tobacco Type: Cigarettes Hx Alcohol Use: Yes Hx Substance Use: No Preferred Language: Swedish Communication Ability: Effective 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 Beliefs That Will Affect Care: None Current Living Situation: Spouse and Family Other Information That Helps Us Care for You: No Feels Safe at Home: Yes Safety Concerns: Feels Safe At This Time Assistive Devices: None Review of Systems Review of Systems: All systems reviewed & are unremarkable except as noted in HPI & below Physical Exam Constitutional: WD/WN, vitals as above no acute distress and not ill appearing Respiratory: normal respiratory effort, lungs clear to auscultation no respiratory distress, no labored breathing and no retractions Cardiovascular: Rate/Rhythm: regular rate and regular rhythm Gastrointestinal (Abdomen): Inspection/Auscultation: abdomen normal to inspection; abdomen not distended Percussion/Palpation: abdomen soft; abdomen nontender, no guarding and abdomen not rigid Skin: no rashes, warm and dry no jaundice Psychiatric: A+Ox3, euthymic affect Results & Data Vital Signs (Past 12 Hours) Vital Signs Temp Pulse Pulse Resp BP BP Pulse Ox 08/13/23 15:16 36.4 C L 58 L 16 120/74 95 08/13/23 14:47 36.5 C 63 18 121/79 95 08/13/23 12:31 36.4 C L 68 18 129/82 94 08/13/23 12:04 36.4 C 65 18 126/80 96 08/13/23 11:30 36.5 C 65 18 127/81 94 08/13/23 11:10 36.5 C 68 18 121/83 94 08/13/23 11:00 73 21 112/86 93 08/13/23 10:50 67 19 122/81 93 08/13/23 10:43 77 24 122/74 97 08/13/23 10:36 36.0 C L 72 23 110/72 97 08/13/23 08:21 36.5 C 70 18 116/79 99 08/13/23 07:58 36.6 C 74 18 117/72 6 L O2 Del Method O2 Flow Rate 08/13/23 15:16 Room Air 08/13/23 14:47 Room Air 08/13/23 12:31 Room Air 08/13/23 12:04 Room Air 08/13/23 11:30 Room Air 08/13/23 11:10 Room Air 0 08/13/23 11:00 Room Air 0 08/13/23 10:50 Room Air 0 08/13/23 10:43 Oxymask 4 08/13/23 10:36 Oxymask 4 08/13/23 08:21 Room Air 08/13/23 07:58 Room Air Laboratory Results 08/13/23 08/12/23 08/12/23 Range/Units 05:26 18:41 18:00 WBC 4.32 L 5.94 (4.8-10.8) K/ul RBC 3.74 L 4.40 (4.20-5.40) M/uL Hgb 10.6 L 12.3 (12.0-16.0) g/dl Hct 32.8 L 38.1 (37.0-47.0) % MCV 87.7 86.6 (80.0-100.0) fL MCH 28.3 28.0 (25.0-34.0) pg MCHC 32.3 32.3 (32.0-36.0) g/dL RDW Std Deviation 42.9 42.0 (36.4-46.3) fL RDW Coeff of Adrien 13.5 13.3 (11.5-14.5) % Plt Count 220 242 (130-400) K/uL MPV 10.7 10.5 (9.4-12.4) fL Immature Gran % (Auto) 0.0 0.2 % Neut % (Auto) 54.9 68.8 % Lymph % (Auto) 36.6 24.2 % Garvin % (Auto) 7.6 6.4 % Eos % (Auto) 0.7 0.2 % Baso % (Auto) 0.2 0.2 % Neut # (Auto) 2.37 4.09 (1.40-6.50) K/uL Lymph # (Auto) 1.58 1.44 (1.20-3.40) K/uL Garvin # (Auto) 0.33 0.38 (0.11-0.59) K/uL Eos # (Auto) 0.03 0.01 (0.00-0.50) K/uL Baso # (Auto) 0.01 0.01 (0.00-0.20) K/uL Immature Gran # (Auto) 0.00 L 0.01 (0.01-0.20) K/uL PT 10.4 (9.0-12.0) Seconds INR 0.9 (0.9-1.1) Sodium 141 140 (136-145) mmol/L Potassium 3.7 3.6 (3.5-5.1) mmol/L Chloride 108 H 106 (98-107) mmol/L Carbon Dioxide 27 28 (21-32) mmol/L Anion Gap 6 6 (3-11) BUN 9 10 (6-23) mg/dl Creatinine 0.96 0.97 (0.6-1.2) mg/dl Est Cr Clr Drug Dosing 87.4 87.9 ml/min Est GFR ( Amer) 92.0 90.8 ml/min Est GFR (Non-Af Amer) 79.4 78.4 ml/min BUN/Creatinine Ratio 9.4 L 10.3 (10-20) Glucose 77 95 (70-99(Fasting)) mg/dl Calcium 8.4 L 9.1 (8.6-10.3) mg/dl Magnesium 2.0 (1.7-2.4) mg/dl Total Bilirubin 1.2 H 2.4 H (0.2-1.0) mg/dl AST 85 H 146 H (13-39) U/L ALT 216 H 319 H (7-52) U/L Alkaline Phosphatase 152 H 212 H (34-104) U/L Total Protein 6.2 7.5 (6.0-8.3) gm/dl Albumin 3.5 4.2 (3.4-5.0) gm/dl Globulin 2.7 3.3 (2.5-4.0) gm/dl Albumin/Globulin Ratio 1.3 1.3 (0.9-2) Lipase 1841 H 6252 H (11-82) U/L Urine Color Dark Yellow Urine Appearance Clear (Clear) Urine pH 5.5 (4.5-7.5) Ur Specific Davis 1.014 (1.000-1.030) Urine Protein Negative (Negative) Urine Glucose (UA) Negative (Negative) Urine Ketones Trace H (Negative) Urine Blood Negative (Negative) Urine Nitrite Negative (Negative) Urine Bilirubin 2+ H (Negative) Urine Urobilinogen Negative (Negative) Ur Leukocyte Esterase Negative (Negative) Urine Test Negative (Negative) Diagnostic Findings Exam(s): US GALLBLADDER EXAM: US Abdomen Limited, Gallbladder CLINICAL HISTORY: Right upper quadrant pain. TECHNIQUE: Real-time ultrasound of the right upper quadrant with image documentation. COMPARISON: Gallbladder ultrasound 06/07/2017 FINDINGS: Liver: The liver measures 18.3 cm. There is increased echogenicity of the liver. No mass. Gallbladder: Cholelithiasis. Thickening of the gallbladder wall could relate to chronic liver disease or acute cystitis. Common bile duct: Dilated common bile duct measuring 1 cm. No stones. Pancreas: The pancreatic head and body are within normal limits. The tail is not visualized due to overlying bowel gas. Right kidney: The right kidney is unremarkable measuring 9.7 cm. IMPRESSION: 1. Cholelithiasis. Thickening of the gallbladder wall could relate to chronic liver disease or acute cystitis. 2. Dilated common bile duct measuring 1 cm. Consider further evaluation with MRCP. 3. Hepatomegaly with fatty infiltration of the liver. Exam(s): MRI MRCP EXAM: MR Abdomen Without Intravenous Contrast, MRCP Protocol CLINICAL HISTORY: Reason for exam: concern for gallstone panc, dilated CBD. TECHNIQUE: Multiplanar magnetic resonance images of the abdomen without intravenous contrast using MRCP protocol. COMPARISON: Ultrasound from August 12, 2023 and MRCP from August 11, 2023 FINDINGS: Bile ducts: The common bile duct is nondilated measuring 5 mm. No choledocholithiasis is seen. Gallbladder: The gallbladder is fully distended measuring 5 cm short axis diameter. There are multiple 2-3 mm calcified gallstones within the dependent portion of the gallbladder and a trace amount of pericholecystic fluid suggesting acute cholecystitis. Liver: Unremarkable. Pancreas: There is a slight edema surrounding the body and tail of the pancreas suggesting possible mild acute pancreatitis. No pancreatic duct dilation is seen. Spleen: Unremarkable. No splenomegaly. Adrenals: Unremarkable. No mass. Kidneys and ureters: Unremarkable. No hydronephrosis. Stomach and bowel: Unremarkable. No obstruction. Other findings: The appendix is normal. IMPRESSION: 1. The gallbladder is fully distended measuring 5 cm short axis diameter. There are multiple 2-3 mm calcified gallstones within the dependent portion of the gallbladder and a trace amount of pericholecystic fluid suggesting acute cholecystitis. 2. There is a slight edema surrounding the body and tail of the pancreas suggesting possible mild acute pancreatitis. This is new. No pancreatic duct dilation is seen. No pseudocyst. 3. The common bile duct is nondilated measuring 5 mm. No choledocholithiasis is seen.
[2023-08-13] MEDS: LACTATED RINGER'S 1,000 ML IV SCH (18:29)
[2023-08-13] MEDS ORDERED: Nursing to Pharmacy Communication SCH (19:15)
[2023-08-13] MEDS: CITALOPRAM 20 MG TAB PO STA (21:42)
[2023-08-13] MEDS: FAMOTIDINE 20 MG TAB PO SCH (21:43)
[2023-08-14] MEDS: LR 15ML/HR IV SCH (03:46)
[2023-08-14 06:23] LABS: Basophils # (auto) 0.01 K/uL (0.00-0.20); Basophils % (auto) 0.2 %; Hematocrit (blood only) 33.6 % (37.0-47.0); Hemoglobin 10.9 g/dl (12.0-16.0); Immature Granulocytes # (auto) 0.02 K/uL (0.01-0.20); Immature Granulocytes % (auto) 0.4 %; Mean Corpuscular Hemoglobin 28.2 pg (25.0-34.0); Mean Corpuscular Hgb Conc 32.4 g/dL (32.0-36.0); Monocytes # (auto) 0.45 K/uL (0.11-0.59); Monocytes % (auto) 8.6 %; Neutrophils # (auto) 3.67 K/uL (1.40-6.50); Neutrophils % (auto) 69.8 %; Platelet Count 222 K/uL (130-400); RDW Coefficient of Variation 13.4 % (11.5-14.5); RDW Standard Deviation 41.8 fL (36.4-46.3); Red Blood Count 3.86 M/uL (4.20-5.40); White Blood Count 5.25 K/ul (4.8-10.8)
[2023-08-14 06:35] LABS: Albumin Globulin Ratio 1.3 (0.9-2); Albumin Level 3.6 gm/dl (3.4-5.0); BUN Creatinine Ratio 8.9 (10-20); Bilirubin,Total 0.9 mg/dl (0.2-1.0); Creatinine Clr Calc Pharmacy 93.2 ml/min; Est GFR (African American) 99.4 ml/min; Est GFR (Non-African American) 85.8 ml/min; Globulin 2.8 gm/dl (2.5-4.0); Magnesium 1.9 mg/dl (1.7-2.4); Potassium 3.9 mmol/L (3.5-5.1); Total Protein 6.4 gm/dl (6.0-8.3)
--- NOTE | 2023-08-14 06:54 | Discharge Summary ---
Date of Service August 14, 2023 Admission HPI Per Admitting Provider The patient is a 28-year-old female with a past medical history including emergency department visit about 24 hours ago, for transaminitis, cholelithiasis, common bile duct dilatation and abdominal pain. Her symptoms h ad improved after receiving pain medications and was discharged on Cipro and Flagyl, with plans to follow-up with surgery in the outpatient setting at [facility]. Due to more acute worsening of symptoms later on in the day today, she presents to the ED at [facility] for reassessment. Admission Exam Per Admitting Provider The patient is awake, alert and oriented 3, well developed and well nourished, normocephalic and atraumatic, lying in bed and in no acute distress. HEENT--PERRL, EOMI, mucous membranes and oropharynx dry. Neck--supple. No JVD. No bruits. Thyroid normal, trachea midline, no adenopathy. Heart--normal S1 and S2. No murmurs, rubs or gallops. Lungs--clear bilaterally, no respiratory distress, no accessory muscle use. Abdomen--normal bowel sounds and soft. mild tenderness epigastric and right upper quadrant pain Extremities-- No edema. Dermatologic--normal skin turgor, normal color, no abnormal lymph nodes, no rash. Neurologic--cranial nerves II through XII grossly intact. Rheumatologic--normal range of motion. Psychiatric--normal affect. Principal Diagnosis Gallstone Pancreatitis Discharge Exam Constitutional WD/WN, vitals as above Eyes PERRL, conjunctivae normal, anicteric sclerae ENMT external ear and nose normal, oropharynx normal Respiratory normal respiratory effort, lungs clear to auscultation Cardiovascular RRR, no murmur, no edema Gastrointestinal (Abdomen) normal bowel sounds, soft, nontender, no hepatosplenomegaly Skin no rashes, warm and dry Discharge Data Allergies Allergy/AdvReac Type Severity Reaction Status Date / Time No Known Allergies Allergy Verified 08/12/23 20:15 Consultations 08/12/23 20:00 ED Decision to Admit Stat 08/12/23 23:45 Consult Gastroenterology Routine 08/13/23 16:06 Consult General Surgery Routine Procedures Performed Operation Date: 08/13/23 08:30 Actual Procedures p Endoscopic Retrograde Cholangiopancreato - Marten B. Mendoza, DO s Endoscopic Ultrasonography Upper - Simone Mendoza DO p EGD Biopsy Cytology(Not Applicable) - Simone Mendoza DO Ordered Studies 08/12/23 18:06 US gallbladder Stat 08/12/23 20:00 MR MRCP Stat 08/13/23 FL ERCP biliary ductal Routine 08/13/23 08:24 US upper EUS PACS images Routine 08/13/23 09:09 US upper EUS PACS images Routine Hospital Course (1) Choledocholithiasis with acute cholecystitis with obstruction: 28 F with no significant past medical history who presented to the emergency room with nausea, vomiting, and abdominal pain x 4 days. Admitted to the hospit ok for acute management of choledocholithiasis with acute cholecystitis. Now s/p ERCP. *Patient to see general surgery in outpatient setting for elective cholecystectomy. Repeat ERCP in 6 weeks for stent removal Choledocholithiasis with Acute Cholecystitis with Obstruction/Acute Pancreatitis -Acute. Patient does report history of -associated cholecystitis dating back to first at age 24. Youngest child is now 4 months old. -Lipase 6252, AST/ALT 319/212, alk phos 212. Now downtrending (lipase-1841, AST/ALT-85/216, alk phos-152). No leukocytosis. -Gallbladder U/S: Thickening of the gb wall c/f acute cystitis, chronic liver disease; dilated CBD measuring 1 cm; hepatomegaly with fatty infiltration. -MRCP: Full distention of gallbladder measuring 5 cm at short axis, multiple 2 to 3 mm calcified gallstones within the dependent portion of the gallbladder and trace amount of pericholecystic fluid suggesting acute cholecystitis; slight edema surrounding body and tail of pancreas suggesting mild acute pancreatitis (no pseudocyst, pancreatic ductal dilation); nondilated CBD measuring 5 mm. -S/p ERCP 08/12, biliary sphincterotomy. -Tolerating clears and solids successfully at present. * Pain controlled in hospital with prn dilaudid, nausea controlled with zofran * started on zosyn for possible cholecystitis, discontinued after no cholecystitis found on MRCP * Refer to general surgery for elective cholecystectomy (consult placed) * Repeat ERCP x 6 weeks to remove stent, after cholecystectomy * LFTs, transaminases downtrending (2) Acute cholecystitis: (3) Acute gallstone pancreatitis: (4) Common bile duct dilation: Total Time Total Time Spent Total Time Spent (In Minutes): see attending attestation Discharge Plan Discharge Items Patient Disposition: Home - Self-Care Reason For Visit: GALLSTONE PANCREATITIS Discharge Diagnosis: Gallstones Activity: Resume your previous activity Non-emergency contact: Primary Care Provider Call non-emergency contact if: you have any medication questions and your symptoms worsen Follow-up/Referrals: Gigi Govea MD [Physician] - 08/18/23 Cassius Oneal MD [Primary Care Provider] - (SPOKE WITH PATIENT AND SHE WILL MAKE HER OWN APPOINTMENT WITH PCP IN 7-10 DAYS.) Diet: Low Fat Addtl Attending Provider Instructions: You were admitted to the hospital for gallstone pancreatitis. You were treated with antibiotics, fluids, and pain medication, and we removed the stone causing the obstruction. You are scheduled to have a gallbladder remove in the outpatient setting. A discharge summary will be sent to your primary care physician to ensure continuity of care. Please bring this discharge summary with you to your next office appointment so that your provider can review it at that time. Follow-up appointments: Make a follow-up appointment with your PCP within the next week. It is very important that you follow up with them shortly after discharge from the hospital. Keep all your follow-up appointments as already scheduled. If you cannot make an appointment, notify your provider. Medications: Your medication list has been reviewed and reconciled upon discharge to ensure accuracy and continuity of care. An updated list of all your medications is included with your hospital discharge paperwork. Please review this list closely, and make note of any changes. Take your medications as instructed; do not skip a dose of your medicines. Make sure all of your doctors know every medicine you are taking (including over-the- counter medicines, vitamins, and supplements). Call your primary care provider before taking any new medicines (including [id number]-[id number] medicines, vitamins, and supplements), because some of these may interact with your current medications, or may make your symptoms worse. Tell your primary care provider if you cannot afford your medications. CONTACT YOUR PRIMARY CARE PROVIDER if you experience any of the following: Nausea, vomiting, abdominal pain Fever, Diarrhea Difficulty following your treatment plan, or difficulty taking medications CALL 911 OR GO TO THE EMERGENCY DEPARTMENT if you experience any of the following: Sudden, severe abdominal pain or nausea/vomiting Severe chest pain, or chest pain that radiates (moves) to your jaw or arm Sudden, severe shortness of breath or difficulty breathing Thank you for allowing us to participate in your care. Pending Studies at Discharge: No Stand-Alone Forms: My [facility], Smoking Cessation Medications and DC Order Prescriptions: Continued citalopram 10 mg tablet 10 mg PO DAILY ondansetron HCl 4 mg tablet 4 mg PO BID PRN (Reason: NAUSEA/VOMITING) famotidine 20 mg tablet 20 mg PO BID omeprazole 20 mg capsule,delayed release(DR/EC) 20 mg PO DAILY ciprofloxacin HCl 500 mg tablet 500 mg PO Q12H 10 Days Qty: 20 0RF Rx Instructions: ORDERED 08/12/23, PT DID NOT START MED YET metronidazole 500 mg tablet 500 mg PO Q8H 10 Days Qty: 30 0RF Rx Instructions: ORDERED 08/12/23, PT DID NOT START MED YET Discharge Orders: Discharge Order (Routine); Ordered 08/14/23 Ordered By: Leonor Collins Admission Data Admit Date/Time: 08/12/23 21:26 Attending Provider: Jeanna Nielsen Admit Provider: Thai Yusuf Primary Care Provider: Cassius Oneal Other Providers: Thai Yusuf; Simone Mendoza; Gigi Govea Other Interventions: Discharge Summary Assessment (RN) Last Done: 08/14/23 11:24 Supervising Physician Co-Signing Physician Notes I personally examined the patient and verified grimes points of history and exam, discussed case, and agree with decision making and plan documented by Dr. Collins. Patient with improvement of symptoms, labs downtrending. Patient has follow-up scheduled for stent removal as well as consultation outpatient with surgery for elective cholecystectomy. Patient recommended to follow-up with PCP within 5 days of discharge. Recommend reevaluation of transaminase, alk phos, and bilirubin levels at that time. Resident Activity Tracking Resident Involvement: Resident Care Provided Care Provided: Adult Hospital Medicine
[2023-08-14] MEDS: CITALOPRAM 20 MG TAB PO SCH (07:48)
== END 2023-08-14 12:21 | disposition home or self-care (01) | DRG 444 ==
LOC: ED 17:56 → SUATTDRO 21:26 → 3W 21:26